=== PATIENT | male | born 1970 | race Caucasian/White ===

== ENCOUNTER → 2018-02-17 | Outpatient (CLI) | payer OTHER ==
[~2018-02-17] MED LIST: CATHETER FLUSH 10 ML SYR IV PRN
[2018-02-17 08:37] VITALS: BP 115/78
--- NOTE | 2018-02-17 14:53 | STRESS TEST ---
DATE OF SERVICE: 02/17/2018 EXERCISE STRESS TEST REPORT Baseline heart rate is 94. In summary, the patient was injected with 10.8 mCi of technetium-99 Myoview and the resting images were obtained. Then, the patient started exercising with a baseline heart rate, blood pressure and EKG mentioned above. The patient was able to exercise for 10 minutes on Giovany protocol, achieving maximum heart rate of 143. With peak stress level, the patient was injected with 31.2 mCi of technetium-99 Myoview. The resting and stress images were reviewed and compared in the short axis, horizontal long axis, and vertical long axis views. Review of the images showed diaphragmatic attenuation with typical male pattern, mild decreased uptake at the inferoapical segment with no significant ischemia noted. SSS is 1, SDS 1, and TID value 0.84. On the gated images, the left ventricle appeared to be normal size with normal contractility. Calculated ejection fraction is 55%. CONCLUSION: 1. Good exercise tolerance, a total of 10 minutes on Giovany protocol, achieving 83% of maximum expected heart rate. 2. Appropriate heart rate and blood pressure response to exercise returned to baseline during recovery. 3. Minimal nondiagnostic EKG changes with exercise returned to baseline during recovery. 4. No ischemia or infarction on SPECT images with typical male pattern. 5. Normal left ventricular size with normal contractility. Calculated ejection fraction is 55%. Job ID: [id number] DocumentID: [id number] Dictated Date: 02/17/2018 14:00:25 Revival Clerk Date: 02/17/2018 14:53:17 Dictated By: ALEXANDREA CAPONE MD
== END ==
LOC: CARD 06:51
PROVIDERS: ATTEND Internal Medicine Cardiovascular Disease
DX: I10 Essential (primary) hypertension (principal); R07.9 Chest pain, unspecified; R42 Dizziness and giddiness; I63.9 Cerebral infarction, unspecified; E66.9 Obesity, unspecified
CPT/HCPCS: 78452; 93017

== ENCOUNTER → 2018-02-18 | Outpatient (CLI) | payer OTHER | LOC: CARD 09:58 | PROVIDERS: ATTEND Internal Medicine Cardiovascular Disease | DX: I10 Essential (primary) hypertension (principal); R42 Dizziness and giddiness; R07.9 Chest pain, unspecified; I63.9 Cerebral infarction, unspecified; E66.9 Obesity, unspecified; I34.0 Nonrheumatic mitral (valve) insufficiency | CPT/HCPCS: 93306 ==

== ENCOUNTER → 2018-11-04 | Outpatient (CLI) | payer OTHER ==
--- NOTE | 2018-11-04 14:44 | Diagnostic Imaging Report ---
PROCEDURE: CT chest without contrast. TECHNIQUE: Multiple contiguous axial images were obtained through the chest without the use of intravenous contrast. Auto Exposure Controls were utilized during the CT exam to meet ALARA standards for radiation dose reduction. INDICATION: Weakness. Tremor. COMPARISON: None. FINDINGS: Evaluation of the lung haro demonstrate small 4 mm micronodule cyst seen with the superior margins of the major fissure on the left. There is also small subpleural micronodule within the anterior and lateral margins of the left upper lobe (images 64 and 68, series 4). There is no focal consolidation, large effusion, nor pneumothorax. Cardiomediastinal structures show normal heart size. There is no large pericardial effusion. There is mild wispy increased density within the anterior superior mediastinum. No suspicious mediastinal, hilar, nor axillary adenopathy is seen on either side. Hypodense nodule of the right thyroid lobe measures 2.7 x 2.5 cm. Osseous structures show no acute abnormalities. Included portions of the upper abdomen show hypodense appearance to the liver. IMPRESSION: 1. Minimal wispy soft tissue density within the anterosuperior mediastinum, which could be on the basis of residual thymic tissue. 2. Small left-sided micronodules. If patient is in a high-risk category, such as history of smoking, one-year followup could be performed to ensure stability. 3. Right-sided thyroid nodule. Correlation with dedicated thyroid sonogram is recommended when clinically appropriate. 4. Hepatic steatosis. Dictated by: Dictated on workstation # [id number]
== END ==
LOC: RAD 12:13
PROVIDERS: ATTEND Psychiatry & Neurology Neuromuscular Medicine
DX: E04.1 Nontoxic single thyroid nodule (principal); R91.8 Other nonspecific abnormal finding of lung field; K76.0 Fatty (change of) liver, not elsewhere classified; R53.1 Weakness; R25.1 Tremor, unspecified
CPT/HCPCS: 71250

== ENCOUNTER → 2018-11-29 | Outpatient (CLI) | payer OTHER ==
--- NOTE | 2018-11-29 12:50 | Diagnostic Imaging Report ---
PROCEDURE: MR imaging cervical spine without contrast. TECHNIQUE: Multiplanar, multisequence MR imaging of the cervical spine was performed without contrast. INDICATION: Weakness, tremors and neuropathy. COMPARISON: No prior studies are available for comparison. FINDINGS: Curvature and alignment of the cervical spine is normal. The vertebral body marrow signal is normal. No geographic marrow lesion is seen. There is mild generalized disc desiccation but disc heights are fairly well-maintained. Cervical cord demonstrates normal homogeneous signal intensity and normal morphology. Craniocervical junction is unremarkable. C2-C3: No central canal or neural foraminal stenosis is identified. C3-C4: No central canal or neural foraminal stenosis is identified. C4-C5: No central canal or neural foraminal stenosis is identified. C5-C6: No central canal or neural foraminal stenosis is detected. C6-C7: No central canal or neural foraminal stenosis is detected. C7-T1: No central canal or neural foraminal stenosis is identified. Paraspinous tissues demonstrates a 2.5 cm hyperintense mass involving the right lobe of the thyroid gland. No other significant abnormalities seen. IMPRESSION: 1. Essentially unremarkable MRI of the cervical spine. No focal disc protrusion, central canal or neural foraminal stenosis is identified. 2. Right thyroid mass. Dedicated thyroid ultrasound would be recommended for further evaluation. Dictated by: Dictated on workstation # [id number]
== END ==
LOC: RAD 11:36
PROVIDERS: ATTEND Psychiatry & Neurology Neuromuscular Medicine
DX: G62.9 Polyneuropathy, unspecified (principal); E07.89 Other specified disorders of thyroid; R25.1 Tremor, unspecified; R53.1 Weakness
CPT/HCPCS: 72141

== ENCOUNTER → 2018-12-17 | Outpatient (CLI) | payer OTHER ==
--- NOTE | 2018-12-17 09:30 | Diagnostic Imaging Report ---
PROCEDURE: US Thyroid. TECHNIQUE: Multiple real-time grayscale images were obtained of the thyroid in various projections. INDICATION: Right-sided thyroid nodule. COMPARISON: No prior thyroid ultrasounds are available for comparison. FINDINGS: Right lobe of the thyroid measures 5.5 x 2.3 x 2.4 cm and the left lobe measures 4.6 x 1.6 x 1.5 cm. Left lobe shows homogeneous echotexture. There is a dominant solid mass involving the mid to lower aspect of the right lobe of thyroid measuring 3.7 x 2.3 x 2.2 cm. No microcalcifications are seen. Subcentimeter nodule in the lower pole right lobe is also noted. IMPRESSION: Dominant solid right lobe thyroid mass. Fine-needle aspiration would be recommended for further evaluation. Dictated by: Dictated on workstation # [id number]
== END ==
LOC: RAD 07:27
PROVIDERS: ATTEND Family Medicine
DX: E04.1 Nontoxic single thyroid nodule (principal)
CPT/HCPCS: 76536

== ENCOUNTER → 2018-12-24 | Outpatient (CLI) | payer OTHER ==
[~2018-12-24] VITALS: Ht 177.8 cm; Wt 115.9 kg
[~2018-12-24] MED LIST changes: -CATHETER FLUSH 10 ML SYR IV PRN; +LIDOCAINE 1% INJ 20 ML 20 ML VIAL INJ ONE; +LIDOCAINE 1% INJ 20 ML 20 ML VIAL ONE
--- NOTE | 2018-12-24 11:58 | Diagnostic Imaging Report ---
INDICATION: Right thyroid nodule. Patient presents for ultrasound-guided fine-needle aspiration. Patient brought to the procedure room and placed on table in the supine position. Ultrasound of the right neck was performed to evaluate appropriate entry site. The right neck was then prepped and draped in usual sterile fashion. A small amount of 1% lidocaine was utilized for local anesthesia. A total of 4 passes were made into the solid nodule in right lobe of the thyroid utilizing 25-gauge needles. Fine-needle aspiration technique was utilized. Needle was withdrawn and hemostasis was obtained using manual compression. Patient tolerated procedure well and left department in stable condition. IMPRESSION: Successful ultrasound-guided fine-needle aspiration of the dominant solid nodule right lobe of the thyroid. Pathology results are currently pending. Dictated by: Dictated on workstation # [id number]
== END ==
LOC: RAD 09:34
PROVIDERS: ATTEND Family Medicine
DX: E04.1 Nontoxic single thyroid nodule (principal)
CPT/HCPCS: 88173; 88305

== ENCOUNTER 2019-09-05 18:45 | Inpatient (IN) | payer OTHER ==
[~2019-09-05] VITALS: Ht 180.3 cm; Wt 122.6 kg
[2019-09-05] MEDS ORDERED: NS IV 1000 ML 1,000 ML IV SCH (18:55)
[2019-09-05 19:22] LABS: BASOPHILS % (AUTO) 0 % (0-10); EOSINOPHILS # (AUTO) 0.1 10^3/uL (0.0-0.3); EOSINOPHILS % (AUTO) 1 % (0-10); HEMATOCRIT 44 % (40-54); HEMOGLOBIN 15.7 G/DL (13.3-17.7); LYMPHOCYTES # (AUTO) 1.8 X 10^3 (1.0-4.0); LYMPHOCYTES % (AUTO) 18 % (12-44); MEAN CORPUSCULAR HEMOGLOBIN 31 PG (25-34); MEAN CORPUSCULAR HGB CONC 36 G/DL (32-36); MEAN CORPUSCULAR VOLUME 86 FL (80-99); MEAN PLATELET VOLUME 8.9 FL (7.4-10.4); MONOCYTES # (AUTO) 0.8 X 10^3 (0.0-1.0); MONOCYTES % (AUTO) 8 % (0-12); NEUTROPHILS # (AUTO) 7.3 X 10^3 (1.8-7.8); NEUTROPHILS % (AUTO) 73 % (42-75); PLATELET COUNT 219 10^3/uL (130-400)
[2019-09-05 19:32] LABS: ALBUMIN 4.5 GM/DL (3.2-4.5); CHLORIDE 100 MMOL/L (98-107); POTASSIUM 3.9 MMOL/L (3.6-5.0); SODIUM 135 MMOL/L (135-145)
[2019-09-05 19:33] LABS: AMYLASE 82 U/L (25-125); CALCIUM 9.6 MG/DL (8.5-10.1)
[2019-09-05 19:34] LABS: GLUCOSE 101 MG/DL (70-105); TOTAL PROTEIN 7.6 GM/DL (6.4-8.2)
[2019-09-05 19:35] LABS: CARBON DIOXIDE 21 MMOL/L (21-32)
[2019-09-05 19:36] LABS: BILIRUBIN,TOTAL 1.3 MG/DL (0.1-1.0)
[2019-09-05 19:37] LABS: ALKALINE PHOSPHATASE 106 U/L (40-136)
[2019-09-05 19:38] LABS: CREATININE SERUM 1.17 MG/DL (0.60-1.30); GFR ESTIMATED > 60
[2019-09-05 19:39] LABS: BUN/CREATININE RATIO 13
[2019-09-05 19:40] LABS: FIBRIN DEGRADATION PRODUCTS 19.37 UG/ML (0.00-0.49); MAGNESIUM 1.6 MG/DL (1.6-2.4); PROTHROMBIN TIME PATIENT 13.2 SEC (12.2-14.7)
[2019-09-05 19:41] LABS: ALANINE AMINOTRANSFERASE 31 U/L (0-55); LIPASE 64 U/L (8-78)
[2019-09-05 19:42] LABS: CREATINE KINASE 105 U/L (30-200)
[2019-09-05 19:49] LABS: CREATINE KINASE MB 0.9 NG/ML (<6.6)
[2019-09-05] MEDS ORDERED: DOXY100T2 (19:58)
[2019-09-05] MEDS ORDERED: TACR0.5C6 PO (19:58)
[2019-09-05] MEDS ORDERED: PRED5TAB PO (19:58)
[2019-09-05] MEDS ORDERED: TACR1CAP8 PO (19:58)
[2019-09-05] MEDS ORDERED: PYRI60TA PO (19:58)
--- NOTE | 2019-09-05 20:02 | Diagnostic Imaging Report ---
INDICATION: Fever and weakness. EXAM: No prior examinations are available for comparison. FINDINGS: The heart size, mediastinal configuration, and pulmonary vascularity are within normal limits. There is no pleural effusion, pneumothorax, or pneumonia. The osseous structures are unremarkable. IMPRESSION: No acute cardiopulmonary abnormality. Dictated by: Dictated on workstation # [id number]
--- NOTE | 2019-09-05 20:15 | ED General ---
General Chief Complaint: Lower Extremity Stated Complaint: FEVER/SOA/POSS BLOOD CLOT Nursing Triage Note: pt presents to ed referred by [facility] urgent care for r calf pain over a week with fever starting last night. pt alsp reports DUMAS starting 2 days ago. Nursing Sepsis Screen: No Definite Risk Source of Information: Patient Exam Limitations: No Limitations History of Present Illness Date Seen by Provider: Sep 05, 2019 Time Seen by Provider: 18:55 Initial Comments PT ARRIVES VIA POV FROM [facility] PT C/O RIGHT LOWER LEG PAIN AND SWELLING FOR OVER A WEEK, CALF TENDERNESS HURTS TO WALK OR EXTEND HIS LEG--FEELS BETTER IF KNEE IS FLEXED NO INJURY, NO REDNESS OR SORES, ETC. 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 PT LIVES ALONE PT NORMALLY WORKS AT [employer], BUT HAS NOT WORKED SINCE 05/24/19 DUE TO COVID-19 PANDEMIC. PCP: DR. OAKLEY--HAS NOT SEEN IN AWHILE Allergies and Home Medications Allergies Coded Allergies: No Allergy Information Available (Unverified , 02/17/18) Patient Home Medication List Home Medication List Reviewed: Yes Review of Systems Review of Systems Constitutional: see HPI, chills, diaphoresis, dizziness, malaise EENTM: no symptoms reported; No nose congestion, No throat pain Respiratory: see HPI, cough; No orthopnea, No short of breath, No wheezing Cardiovascular: No chest pain; edema; No palpitations, No syncope Gastrointestinal: see HPI; No abdominal pain, No constipation; diarrhea (CHR ONIC DIARRHEA--UNCHANGED); No loss of appetite, No nausea, No vomiting Genitourinary: no symptoms reported Musculoskeletal: see HPI Skin: no symptoms reported; No rash Psychiatric/Neurological: No Symptoms Reported; Denies Numbness, Denies Paresthesia, Denies Seizure, Denies Tingling, Denies Tremors, Denies Weakness Immunological/Allergic: see HPI Past Lpkxanj-Kscgad-Ixgcvb Hx Past Med/Social Hx: Reviewed and Corrections made Patient Social History Alcohol Use: Past History (NONE FOR 20 YEARS) Recreational Drug Use: No Smoking Status: Former Smoker (QUIT 20 YEARS AGO) Recent Foreign Travel: No Contact w/Someone Who Travel: No Recent Infectious Disease Expo: No Past Medical History Surgeries: Yes (L ELBOW;R ROTATOR CUFF X2;BILAT KNEE SCOPES;R ANIKLE FX/ORIF;THYMUS REMOVED) Orthopedic Respiratory: Yes (PNEUMONIA SEVERAL TIMES) Pneumonia Cardiac: Yes Hypertension Neurological: Yes (MYASTHENIA GRAVIS) Genitourinary: No Gastrointestinal: Yes Chronic Diarrhea Musculoskeletal: Yes (MULTIPLE ORTHO SURGERIES) Fractures Endocrine: No HEENT: No Cancer: No Psychosocial: No Integumentary: No Blood Disorders: No Adverse Reaction/Blood Tranf: No Physical Exam Vital Signs Vital Signs - First Documented 09/05/19 09/05/19 09/06/19 18:45 23:00 00:19 Temp 37.4 Pulse 103 Resp 20 B/P (MAP) 148/102 (117) Pulse Ox 97 O2 Delivery Room Air FiO2 21 Capillary Refill : Less Than 3 Seconds Height, Weight, BMI Height: '" Weight: lbs. oz. kg; 37.00 BMI Method: General Appearance: No Apparent Distress, WD/WN, Other (DOES NOT APPEAR ILL OR TO BE IN ANY DISCOMFORT OR DISTRESS) HEENT: PERRL/EOMI Neck: Full Range of Motion, Normal Inspection, Non Tender, Supple Respiratory: Normal Breath Sounds, No Accessory Muscle Use, No Respiratory Distress Cardiovascular: Regular Rate, Rhythm, No JVD, No Murmur, Normal Peripheral Pulses Gastrointestinal: Non Tender, Soft Back: No CVA Tenderness Extremity: Normal Capillary Refill, Normal Range of Motion, Calf Tenderness (RIGHT), Other (SWELLING AND FIRMNESS AND TENDERNESS TO RIGHT CALF. NO DISCOLORATION. NO SWELLING AT FOOT OR ANKLE OR ANTERIOR TIBIA. NO CORDING. 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 Norm as Tested Skin: Normal Color, Warm/Dry; No Rash Focused Exam Lactate Level 09/05/19 19:00: Lactic Acid Level 1.33 Lactic Acid Level Progress/Results/Core Measures Suspected Sepsis Recent Fever Within 48 Hours: No Infection Criteria Present: None New/Unexplained Altered Menta: No Sepsis Screen: No Definite Risk SIRS Temperature: Pulse: 103 Respiratory Rate: 20 Laboratory Tests 09/05/19 19:00: White Blood Count 10.0 Blood Pressure 148 /102 Mean: 117 09/05/19 19:00: Lactic Acid Level 1.33 Laboratory Tests 09/05/19 19:00: Creatinine 1.17, INR Comment 1.0, Platelet Count 219, Total Bilirubin 1.3H Results/Orders Lab Results Laboratory Tests Test 09/05/19 19:00 09/05/19 21:33 09/05/19 22:11 Range/Units White Blood Count 10.0 4.3-11.0 10^3/uL Red Blood Count 5.13 4.35-5.85 10^6/uL Hemoglobin 15.7 13.3-17.7 G/DL Hematocrit 44 40-54 % Mean Corpuscular Volume 86 80-99 FL Mean Corpuscular Hemoglobin 31 25-34 PG Mean Corpuscular Hemoglobin Concent 36 32-36 G/DL Red Cell Distribution Width 13.0 10.0-14.5 % Platelet Count 219 130-400 10^3/uL Mean Platelet Volume 8.9 7.4-10.4 FL Neutrophils (%) (Auto) 73 42-75 % Lymphocytes (%) (Auto) 18 12-44 % Monocytes (%) (Auto) 8 0-12 % Eosinophils (%) (Auto) 1 0-10 % Basophils (%) (Auto) 0 0-10 % Neutrophils # (Auto) 7.3 1.8-7.8 X 10^3 Lymphocytes # (Auto) 1.8 1.0-4.0 X 10^3 Monocytes # (Auto) 0.8 0.0-1.0 X 10^3 Eosinophils # (Auto) 0.1 0.0-0.3 10^3/uL Basophils # (Auto) 0.0 0.0-0.1 10^3/uL Erythrocyte Sedimentation Rate 8 0-30 MM/HR Prothrombin Time 13.2 12.2-14.7 SEC INR Comment 1.0 0.8-1.4 Activated Partial Thromboplast Time 28 24-35 SEC D-Dimer 19.37 H 0.00-0.49 UG/ML Sodium Level 135 135-145 MMOL/L Potassium Level 3.9 3.6-5.0 MMOL/L Chloride Level 100 98-107 MMOL/L Carbon Dioxide Level 21 21-32 MMOL/L Anion Gap 14 5-14 MMOL/L Blood Urea Nitrogen 15 7-18 MG/DL Creatinine 1.17 0.60-1.30 MG/DL Estimat Glomerular Filtration Rate > 60 BUN/Creatinine Ratio 13 Glucose Level 101 70-105 MG/DL Lactic Acid Level 1.33 0.50-2.00 MMOL/L Calcium Level 9.6 8.5-10.1 MG/DL Corrected Calcium 9.2 8.5-10.1 MG/DL Magnesium Level 1.6 1.6-2.4 MG/DL Total Bilirubin 1.3 H 0.1-1.0 MG/DL Aspartate Amino Transf (AST/SGOT) 22 5-34 U/L Alanine Aminotransferase (ALT/SGPT) 31 0-55 U/L Alkaline Phosphatase 106 40-136 U/L Lactate Dehydrogenase 238 H 125-220 U/L Total Creatine Kinase 105 30-200 U/L Creatine Kinase MB 0.9 <6.6 NG/ML Myoglobin 56.7 10.0-92.0 NG/ML Troponin I < 0.028 <0.028 NG/ML C-Reactive Protein High Sensitivity 2.30 H 0.00-0.50 MG/DL B-Type Natriuretic Peptide < 10.0 <100.0 PG/ML Total Protein 7.6 6.4-8.2 GM/DL Albumin 4.5 3.2-4.5 GM/DL Amylase Level 82 25-125 U/L Lipase 64 8-78 U/L Procalcitonin 0.05 <0.10 NG/ML Urine Color YELLOW Urine Clarity CLEAR Urine pH 6.5 5-9 Urine Specific [place] <=1.005 1.016-1.022 Urine Protein NEGATIVE NEGATIVE Urine Glucose (UA) NEGATIVE NEGATIVE Urine Ketones TRACE H NEGATIVE Urine Nitrite NEGATIVE NEGATIVE Urine Bilirubin NEGATIVE NEGATIVE Urine Urobilinogen 0.2 < = 1.0 MG/DL Urine Leukocyte Esterase NEGATIVE NEGATIVE Urine RBC (Auto) TRACE-L NEGATIVE Urine RBC RARE /HPF Urine WBC NONE /HPF Urine Squamous Epithelial Cells RARE /HPF Urine Crystals NONE /LPF Urine Bacteria NEGATIVE /HPF Urine Casts NONE /LPF Urine Mucus NEGATIVE /LPF Urine Culture Indicated NO My Orders Orders - JOSE MARTIN LOPEZ DO Ed Iv/Invasive Line Start (09/05/19 18:55) Ekg Tracing (09/05/19 18:55) Monitor-Rhythm Ecg Trace Only (09/05/19 18:55) Chest 1 View, Ap/Pa Only (09/05/19 18:55) Amylase (09/05/19 18:55) BNP (09/05/19 18:55) Cbc With Automated Diff (09/05/19 18:55) Comprehensive Metabolic Panel (09/05/19 18:55) Creatine Kinase (09/05/19 18:55) Creatine Kinase Mb (09/05/19 18:55) Hs C Reactive Protein (09/05/19 18:55) Erythrocyte Sedimentation Rate (09/05/19 18:55) Fibrin Degradation Products (09/05/19 18:55) Lactic Acid Analyzer (09/05/19 18:55) Lipase (09/05/19 18:55) Magnesium (09/05/19 18:55) Procalcitonin (Pct) (09/05/19 18:55) Protime With Inr (09/05/19 18:55) Partial Thromboplastin Time (09/05/19 18:55) Ua Culture If Indicated (09/05/19 18:55) Blood Culture (09/05/19 18:55) Myoglobin Serum (09/05/19 18:55) Troponin I (09/05/19 18:55) Ed Iv/Invasive Line Start (09/05/19 18:55) Ns Iv 1000 Ml (Sodium Chloride 0.9%) (09/05/19 18:55) LDH (09/05/19 18:55) Coronavirus Sars-Cov-2 So 2018 (09/05/19 18:55) Ct Angio Chest/Abd W (09/05/19 20:25) Vancomycin Injection (Vancomycin Injecti (09/05/19 21:45) Methylprednisolone Sod Succ (Solu-Medrol (09/05/19 22:00) Vital Signs/I&O 09/05/19 09/05/19 09/05/19 09/05/19 18:45 22:46 23:00 23:06 Temp 37.4 37.0 Pulse 103 80 84 91 Resp 20 20 18 B/P (MAP) 148/102 (117) 124/71 175/124 (141) Pulse Ox 97 95 94 O2 Delivery Room Air 09/05/19 09/05/19 09/05/19 09/05/19 23:15 23:30 23:36 23:45 Pulse 82 88 84 Resp 18 18 18 B/P (MAP) 138/91 (107) 136/89 (105) 129/86 (100) Pulse Ox 97 99 95 O2 Delivery Room Air Room Air 09/05/19 09/06/19 09/06/19 09/06/19 23:57 00:00 00:19 01:00 Pulse 82 103 85 Resp 18 B/P (MAP) 130/86 (101) Pulse Ox 96 97 O2 Delivery Room Air FiO2 21 09/06/19 09/06/19 03:43 03:47 Temp 36.7 Pulse 75 Resp 18 B/P (MAP) 105/69 (81) Pulse Ox 93 O2 Delivery Room Air 09/06/19 00:00 Intake Total 1000 ml Balance 1000 ml Capillary Refill : Less Than 3 Seconds Blood Pressure Mean: 117 Progress Note : Progress Note PT SEEN IN COVID UNIT, PPE WORN AT ALL TIMES COVID-19 TESTING PERFORMED NO ULTRASOUND AVAILABLE HERE AT THIS TIME. VITALS STABLE NO COUGH OR DYSPNEA OR CHEST PAIN NO HYPOXIA PT DECLINES PAIN MEDICATIONS DURING ER STAY ECG Initial ECG Impression Date: Sep 05, 2019 Initial ECG Impression Time: 18:59 Initial ECG Rate: 92 Initial ECG Rhythm: Normal Sinus Initial ECG Impression: Normal Diagnostic Imaging Comments CXR--NO ACUTE PROCESS, PER RADIOLOGIST REPORT AT 2019 CT ANGIOGRAM CHEST/ABDOMEN--PER RADIOLOGIST REPORT [id number] FINDINGS: There is some pulmonary embolism in the right upper lobe pulmonary artery. There is minimal pulmonary embolism in the right lower lobe subsegmental branch. There are no discrete pulmonary nodules, masses or infiltrates. There is no pleural or pericardial fluid. There is no pneumothorax. There is no pathologically enlarged adenopathy in the chest. Thoracic aorta is normal in caliber and without evidence of dissection. The visualized intra-abdominal structures are unremarkable. IMPRESSION: 1. Examination is positive for pulmonary embolism to the right upper lobe and right lower lobe, as described. Reviewed: Reviewed by [facility] Departure Communication (Admissions) 2129--SPOKE WITH DR. OAKLEY, ACCEPTS PT FOR ADMIT. WILL CONSULT DR. WEAVER 2137--SPOKE WITH DR. WEAVER, TAX CREDIT LEASING CONSULTANT, ORDERS NOTED. Impression Primary Impression: Pulmonary emboli Additional Impressions: COVID P.U.I. Myasthenia gravis IMMUNOSPPRESSIVE MEDICATIONS SUSPECTED DVT RIGHT LEG Disposition: ADMITTED INPATIENT Condition: Stable Admissions Decision to Admit Reason: Admit from ER (General) Decision to Admit/Date: Sep 05, 2019 Time/Decision to Admit Time: 21:30 Departure-Patient Inst. Referrals: JESENIA OAKLEY MD (PCP/Family) Primary Care Physician JOSE MARTIN LOPEZ DO Sep 05, 2019 20:15
[2019-09-05 20:17] LABS: ERYTHROCYTE SEDIMENTATION RATE 8 MM/HR (0-30)
--- OUTSIDE RECORDS SUMMARY | 2019-09-05 20:54 | XMS REPORT | Continuity of Care Document ---
Author Organization Unknown Address Unknown Phone Unavailable Allergies Active Description Code Type Severity Reaction Onset Reported/Identified Relationship to Patient Clinical Status Yes No Allergy Information Available [id number] Drug Allergy Unknown N/A 018 Medications There is no data. Problems Date Dx Coded Attending Type Code Diagnosis Diagnosed By 02/18/2018 ALEXANDREA CAOPNE MD Ot E66. 9 OBESITY, UNSPECIFIED 02/18/2018 ALEXANDREA CAPONE MD Ot I10 ESSENTIAL (PRIMARY) HYPERTENSION 02/18/2018 ALEXANDREA CAPONE MD Ot I63. 9 CEREBRAL INFARCTION, UNSPECIFIED 02/18/2018 ALEXANDREA CAPONE MD Ot R07. 9 CHEST PAIN, UNSPECIFIED 02/18/2018 ALEXANDREA CAPONE MD Ot R42 DIZZINESS AND GIDDINESS 02/22/2018 ALEXANDREA CAPONE MD Ot E66. 9 OBESITY, UNSPECIFIED 02/22/2018 ALEXANDREA CAPONE MD Ot I10 ESSENTIAL (PRIMARY) HYPERTENSION 02/22/2018 ALEXANDREA CAPONE MD Ot I34. 0 NONRHEUMATIC MITRAL (VALVE) INSUFFICIENC 02/22/2018 ALEXANDREA CAPONE MD Ot I63. 9 CEREBRAL INFARCTION, UNSPECIFIED 02/22/2018 ALEXANDREA CAPONE MD Ot R07. 9 CHEST PAIN, UNSPECIFIED 02/22/2018 ALEXANDREA CAPONE MD Ot R42 DIZZINESS AND GIDDINESS 03/02/2018 ALEXANDREA CAPONE MD Ot E66. 9 OBESITY, UNSPECIFIED 03/02/2018 ALEXANDREA CAPONE MD Ot I10 ESSENTIAL (PRIMARY) HYPERTENSION 03/02/2018 ALEXANDREA CAPONE MD Ot I34. 0 NONRHEUMATIC MITRAL (VALVE) INSUFFICIENC 03/02/2018 ALEXANDREA CAPONE MD Ot I63. 9 CEREBRAL INFARCTION, UNSPECIFIED 03/02/2018 ALEXANDREA CAPONE MD Ot R07. 9 CHEST PAIN, UNSPECIFIED 03/02/2018 ALEXANDREA CAPONE MD Ot R42 DIZZINESS AND GIDDINESS 03/10/2018 ALEXANDREA CAPONE MD Ot E66. 9 OBESITY, UNSPECIFIED 03/10/2018 ALEXANDREA CAPONE MD Ot I10 ESSENTIAL (PRIMARY) HYPERTENSION 03/10/2018 ALEXANDREA CAPONE MD Ot I63. 9 CEREBRAL INFARCTION, UNSPECIFIED 03/10/2018 ALEXANDREA CAPONE MD Ot R07. 9 CHEST PAIN, UNSPECIFIED 03/10/2018 ALEXANDREA CAPONE MD Ot R42 DIZZINESS AND GIDDINESS 03/17/2018 ALEXANDREA CAPONE MD Ot E66. 9 OBESITY, UNSPECIFIED 03/17/2018 ALEXANDREA CAPONE MD Ot I10 ESSENTIAL (PRIMARY) HYPERTENSION 03/17/2018 ALEXANDREA CAPONE MD Ot I63. 9 CEREBRAL INFARCTION, UNSPECIFIED 03/17/2018 ALEXANDREA CAPONE MD Ot R07. 9 CHEST PAIN, UNSPECIFIED 03/17/2018 ALEXANDREA CAPONE MD Ot R42 DIZZINESS AND GIDDINESS 03/19/2018 ALEXANDREA CAPONE MD Ot E66. 9 OBESITY, UNSPECIFIED 03/19/2018 ALEXANDREA CAPONE MD Ot I10 ESSENTIAL (PRIMARY) HYPERTENSION 03/19/2018 ALEXANDREA CAPONE MD Ot R06. 83 SNORING 03/19/2018 ALEXANDREA CAPONE MD Ot R07. 9 CHEST PAIN, UNSPECIFIED 03/19/2018 ALEXANDREA CAPONE MD Ot Z68. 34 BODY MASS INDEX (BMI) 34.0-34.9, ADULT 03/19/2018 ALEXANDREA CAPONE MD Ot Z82. 49 FAMILY HX OF ISCHEM HEART DIS AND OTH DI 03/22/2018 ALEXANDREA CAPONE MD Ot E66. 9 OBESITY, UNSPECIFIED 03/22/2018 ALEXANDREA CAPONE MD Ot I10 ESSENTIAL (PRIMARY) HYPERTENSION 03/22/2018 ALEXANDREA CAPONE MD Ot R06. 83 SNORING 03/22/2018 ALEXANDREA CAPONE MD Ot R07. 9 CHEST PAIN, UNSPECIFIED 03/22/2018 ALEXANDREA CAPONE MD Ot Z68. 34 BODY MASS INDEX (BMI) 34.0-34.9, ADULT 03/22/2018 ALEXANDREA CAPONE MD Ot Z82. 49 FAMILY HX OF ISCHEM HEART DIS AND OTH DI 04/06/2018 ALEXANDREA CAPONE MD Ot E66. 9 OBESITY, UNSPECIFIED 04/06/2018 ALEXANDREA CAPONE MD Ot I10 ESSENTIAL (PRIMARY) HYPERTENSION 04/06/2018 ALEXANDREA CAPONE MD Ot I34. 0 NONRHEUMATIC MITRAL (VALVE) INSUFFICIENC 04/06/2018 ALEXANDREA CAPONE MD Ot I63. 9 CEREBRAL INFARCTION, UNSPECIFIED 04/06/2018 ALEXANDREA CAPONE MD Ot R07. 9 CHEST PAIN, UNSPECIFIED 04/06/2018 ALEXANDREA CAPONE MD Ot R42 DIZZINESS AND GIDDINESS 04/06/2018 ALEXANDREA CAPONE MD Ot E66. 9 OBESITY, UNSPECIFIED 04/06/2018 ALEXANDREA CAPONE MD Ot I10 ESSENTIAL (PRIMARY) HYPERTENSION 04/06/2018 ALEXANDREA CAPONE MD Ot I63. 9 CEREBRAL INFARCTION, UNSPECIFIED 04/06/2018 ALEXANDREA CAPONE MD Ot R07. 9 CHEST PAIN, UNSPECIFIED 04/06/2018 ALEXANDREA CAPONE MD Ot R42 DIZZINESS AND GIDDINESS 04/06/2018 ALEXANDREA CAPONE MD Ot E66. 9 OBESITY, UNSPECIFIED 04/06/2018 ALEXANDREA CAPONE MD Ot I10 ESSENTIAL (PRIMARY) HYPERTENSION 04/06/2018 ALEXANDREA CAOPNE MD Ot I63. 9 CEREBRAL INFARCTION, UNSPECIFIED 04/06/2018 ALEXANDREA CAPONE MD Ot R07. 9 CHEST PAIN, UNSPECIFIED 04/06/2018 ALEXANDREA CAPONE MD Ot R42 DIZZINESS AND GIDDINESS 04/12/2018 ALEXANDREA CAPONE MD Ot E66. 9 OBESITY, UNSPECIFIED 04/12/2018 ALEXANDREA CAPONE MD Ot I10 ESSENTIAL (PRIMARY) HYPERTENSION 04/12/2018 ALEXANDREA CAPONE MD Ot I34. 0 NONRHEUMATIC MITRAL (VALVE) INSUFFICIENC 04/12/2018 ALEXANDREA CAPONE MD Ot I63. 9 CEREBRAL INFARCTION, UNSPECIFIED 04/12/2018 ALEXANDREA CAPONE MD Ot R07. 9 CHEST PAIN, UNSPECIFIED 04/12/2018 ALEXANDREA CAPONE MD Ot R42 DIZZINESS AND GIDDINESS 04/12/2018 ALEXANDREA CAPONE MD Ot E66. 9 OBESITY, UNSPECIFIED 04/12/2018 ALEXANDREA CAPONE MD Ot I10 ESSENTIAL (PRIMARY) HYPERTENSION 04/12/2018 ALEXANDREA CAPONE MD Ot I34. 0 NONRHEUMATIC MITRAL (VALVE) INSUFFICIENC 04/12/2018 ALEXANDREA CAPONE MD Ot I63. 9 CEREBRAL INFARCTION, UNSPECIFIED 04/12/2018 ALEXANDREA CAPONE MD Ot R07. 9 CHEST PAIN, UNSPECIFIED 04/12/2018 ALEXANDREA CAPONE MD Ot R42 DIZZINESS AND GIDDINESS 04/12/2018 ALEXANDREA CAPONE MD Ot E66. 9 OBESITY, UNSPECIFIED 04/12/2018 ALEXANDREA CAPONE MD Ot I10 ESSENTIAL (PRIMARY) HYPERTENSION 04/12/2018 ALEXANDREA CAPONE MD Ot I63. 9 CEREBRAL INFARCTION, UNSPECIFIED 04/12/2018 ALEXANDREA CAPONE MD Ot R07. 9 CHEST PAIN, UNSPECIFIED 04/12/2018 ALEXANDREA CAPONE MD Ot R42 DIZZINESS AND GIDDINESS 04/12/2018 ALEXANDREA CAPONE MD Ot E66. 9 OBESITY, UNSPECIFIED 04/12/2018 ALEXANDREA CAPONE MD Ot I10 ESSENTIAL (PRIMARY) HYPERTENSION 04/12/2018 ALEXANDREA CAPONE MD Ot I63. 9 CEREBRAL INFARCTION, UNSPECIFIED 04/12/2018 ALEXANDREA CAPONE MD Ot R07. 9 CHEST PAIN, UNSPECIFIED 04/12/2018 ALEXANDREA CAPONE MD Ot R42 DIZZINESS AND GIDDINESS 10/27/2018 ALEXANDREA CAPONE MD Ot E66. 9 OBESITY, UNSPECIFIED 10/27/2018 ALEXANDREA CAPONE MD Ot I10 ESSENTIAL (PRIMARY) HYPERTENSION 10/27/2018 ALEXANDREA CAPONE MD Ot I34. 0 NONRHEUMATIC MITRAL (VALVE) INSUFFICIENC 10/27/2018 ALEXANDREA CAPONE MD Ot I63. 9 CEREBRAL INFARCTION, UNSPECIFIED 10/27/2018 ALEXANDREA CAPONE MD Ot R07. 9 CHEST PAIN, UNSPECIFIED 10/27/2018 ALEXANDREA CAPONE MD Ot R42 DIZZINESS AND GIDDINESS 11/03/2018 ALEXANDREA CAPONE MD Ot E66. 9 OBESITY, UNSPECIFIED 11/03/2018 ALEXANDREA CAPONE MD Ot I10 ESSENTIAL (PRIMARY) HYPERTENSION 11/03/2018 ALEXANDREA CAPONE MD Ot I34. 0 NONRHEUMATIC MITRAL (VALVE) INSUFFICIENC 11/03/2018 ALEXANDREA CAPONE MD Ot I63. 9 CEREBRAL INFARCTION, UNSPECIFIED 11/03/2018 ALEXANDREA CAPONE MD Ot R07. 9 CHEST PAIN, UNSPECIFIED 11/03/2018 ALEXANDREA CAPONE MD Ot R42 DIZZINESS AND GIDDINESS 11/08/2018 HUGO BOX MD Ot E04.1 NONTOXIC SINGLE THYROID NODULE 11/08/2018 HUGO BOX MD Ot K76.0 FATTY (CHANGE OF) LIVER, NOT ELSEWHERE C 11/08/2018 HUGO BOX MD Ot R25.1 TREMOR, UNSPECIFIED 11/08/2018 HUGO BOX MD Ot R53.1 WEAKNESS 11/08/2018 HUGO BOX MD Ot R91.8 OTHER NONSPECIFIC ABNORMAL FINDING OF MURRAY 11/10/2018 HUGO BOX MD Ot E04.1 NONTOXIC SINGLE THYROID NODULE 11/10/2018 HUGO BOX MD Ot K76.0 FATTY (CHANGE OF) LIVER, NOT ELSEWHERE C 11/10/2018 HUGO BOX MD Ot R25.1 TREMOR, UNSPECIFIED 11/10/2018 HUGO BOX MD Ot R53.1 WEAKNESS 11/10/2018 HUGO BOX MD Ot R91.8 OTHER NONSPECIFIC ABNORMAL FINDING OF MURRAY 11/15/2018 HUGO BOX MD Ot E04.1 NONTOXIC SINGLE THYROID NODULE 11/15/2018 HUGO BOX MD Ot K76.0 FATTY (CHANGE OF) LIVER, NOT ELSEWHERE C 11/15/2018 HUGO BOX MD Ot R25.1 TREMOR, UNSPECIFIED 11/15/2018 HUGO BOX MD Ot R53.1 WEAKNESS 11/15/2018 HUGO BOX MD Ot R91.8 OTHER NONSPECIFIC ABNORMAL FINDING OF MURRAY 12/03/2018 HUGO BOX MD Ot E07.89 OTHER SPECIFIED DISORDERS OF THYROID 12/03/2018 HUGO BOX MD Ot G62.9 POLYNEUROPATHY, UNSPECIFIED 12/03/2018 HUGO BOX MD Ot R25.1 TREMOR, UNSPECIFIED 12/03/2018 HUGO BOX MD Ot R53.1 WEAKNESS 12/24/2018 HUGO BOX MD Ot E07.89 OTHER SPECIFIED DISORDERS OF THYROID 12/24/2018 HUGO BOX MD Ot G62.9 POLYNEUROPATHY, UNSPECIFIED 12/24/2018 HUGO BOX MD Ot R25.1 TREMOR, UNSPECIFIED 12/24/2018 HUGO BOX MD Ot R53.1 WEAKNESS 12/24/2018 JESENIA OAKLEY MD Ot E04. 1 NONTOXIC SINGLE THYROID NODULE 12/28/2018 JESENIA OAKLEY MD Ot E04. 1 NONTOXIC SINGLE THYROID NODULE 12/29/2018 JESENIA OAKLEY MD Ot E04. 1 NONTOXIC SINGLE THYROID NODULE 12/31/2018 HUGO BOX MD Ot E07.89 OTHER SPECIFIED DISORDERS OF THYROID 12/31/2018 HUGO BOX MD Ot G62.9 POLYNEUROPATHY, UNSPECIFIED 12/31/2018 HUGO BOX MD Ot R25.1 TREMOR, UNSPECIFIED 12/31/2018 HUGO BOX MD Ot R53.1 WEAKNESS 01/13/2019 ALEXANDREA CAPONE MD Ot E66. 9 OBESITY, UNSPECIFIED 01/13/2019 ALEXANDREA CAPONE MD Ot I10 ESSENTIAL (PRIMARY) HYPERTENSION 01/13/2019 ALEXANDREA CAPONE MD Ot I34. 0 NONRHEUMATIC MITRAL (VALVE) INSUFFICIENC 01/13/2019 ALEXANDREA CAPONE MD Ot I63. 9 CEREBRAL INFARCTION, UNSPECIFIED 01/13/2019 ALEXANDREA CAPONE MD Ot R07. 9 CHEST PAIN, UNSPECIFIED 01/13/2019 ALEXANDREA CAPONE MD Ot R42 DIZZINESS AND GIDDINESS 01/13/2019 JESENIA OAKLEY MD Ot E04. 1 NONTOXIC SINGLE THYROID NODULE 01/13/2019 JESENIA OAKLEY MD Ot E04. 1 NONTOXIC SINGLE THYROID NODULE 01/13/2019 HUGO BOX MD Ot E07.89 OTHER SPECIFIED DISORDERS OF THYROID 01/13/2019 HUGO BOX MD Ot G62.9 POLYNEUROPATHY, UNSPECIFIED 01/13/2019 HUGO BOX MD Ot R25.1 TREMOR, UNSPECIFIED 01/13/2019 HUGO BOX MD Ot R53.1 WEAKNESS 01/13/2019 HUGO BOX MD Ot E04.1 NONTOXIC SINGLE THYROID NODULE 01/13/2019 HUGO BOX MD Ot K76.0 FATTY (CHANGE OF) LIVER, NOT ELSEWHERE C 01/13/2019 HUGO BOX MD Ot R25.1 TREMOR, UNSPECIFIED 01/13/2019 HUGO BOX MD Ot R53.1 WEAKNESS 01/13/2019 HUGO BOX MD Ot R91.8 OTHER NONSPECIFIC ABNORMAL FINDING OF MURRAY 01/28/2019 JESENIA OAKLEY MD Ot E04. 1 NONTOXIC SINGLE THYROID NODULE 02/21/2019 ALEXANDREA CAPONE MD Ot E66. 9 OBESITY, UNSPECIFIED 02/21/2019 ALEXANDREA CAPONE MD Ot I10 ESSENTIAL (PRIMARY) HYPERTENSION 02/21/2019 ALEXANDREA CAPONE MD Ot I34. 0 NONRHEUMATIC MITRAL (VALVE) INSUFFICIENC 02/21/2019 ALEXANDREA CAPONE MD Ot I63. 9 CEREBRAL INFARCTION, UNSPECIFIED 02/21/2019 ALEXANDREA CAPONE MD Ot R07. 9 CHEST PAIN, UNSPECIFIED 02/21/2019 ALEXANDREA CAPONE MD Ot R42 DIZZINESS AND GIDDINESS 02/21/2019 HUGO BOX MD Ot E04.1 NONTOXIC SINGLE THYROID NODULE 02/21/2019 HUGO BOX MD Ot K76.0 FATTY (CHANGE OF) LIVER, NOT ELSEWHERE C 02/21/2019 HUGO BOX MD Ot R25.1 TREMOR, UNSPECIFIED 02/21/2019 HUGO BOX MD Ot R53.1 WEAKNESS 02/21/2019 HUGO BOX MD Ot R91.8 OTHER NONSPECIFIC ABNORMAL FINDING OF MURRAY 02/21/2019 HUGO BOX MD Ot E07.89 OTHER SPECIFIED DISORDERS OF THYROID 02/21/2019 HUGO BOX MD Ot G62.9 POLYNEUROPATHY, UNSPECIFIED 02/21/2019 HUGO BOX MD Ot R25.1 TREMOR, UNSPECIFIED 02/21/2019 HUOG BOX MD Ot R53.1 WEAKNESS 02/21/2019 JESENIA OAKLEY MD Ot E04. 1 NONTOXIC SINGLE THYROID NODULE 02/21/2019 JESENIA OAKLEY MD Ot E04. 1 NONTOXIC SINGLE THYROID NODULE 02/21/2019 HUGO BOX MD Ot E07.89 OTHER SPECIFIED DISORDERS OF THYROID 02/21/2019 HUGO BOX MD, Ot G62.9 POLYNEUROPATHY, UNSPECIFIED 02/21/2019 HUGO BOX MD Ot R25.1 TREMOR, UNSPECIFIED 02/21/2019 HUGO BOX MD Ot R53.1 WEAKNESS 02/21/2019 HUGO BOX MD Ot E04.1 NONTOXIC SINGLE THYROID NODULE 02/21/2019 HUGO BOX MD Ot K76.0 FATTY (CHANGE OF) LIVER, NOT ELSEWHERE C 02/21/2019 HUGO BOX MD Ot R25.1 TREMOR, UNSPECIFIED 02/21/2019 HUGO BOX MD Ot R53.1 WEAKNESS 02/21/2019 HUGO BOX MD Ot R91.8 OTHER NONSPECIFIC ABNORMAL FINDING OF MURRAY Procedures There is no data. Results Test Result Range Complete blood count (CBC) with automate d white blood cell (WBC) differential - 09/05/19 19:00 Blood leukocytes automated count (number/volume) 10.0 10*3/uL 4.3-11.0 Blood erythrocytes automated count (number/volume) 5.13 10*6/uL 4.35-5.85 Venous blood hemoglobin measurement (mass/volume) 15.7 g/dL 13.3-17.7 Blood hematocrit (volume fraction) 44 % 40-54 Automated erythrocyte mean corpuscular volume 86 [ foz_us] 80-99 Automated erythrocyte mean corpuscular h emoglobin (mass per erythrocyte) 31 pg 25-34 Automated erythrocyte mean corpuscular h emoglobin concentration measurement (mass/volume) 36 g/dL 32-36 Automated erythrocyte distribution width ratio 13. 0 % 10.0- 14.5 Automated blood platelet count (count/volume) 219 10*3/uL 130-400 Automated blood platelet mean volume measurement 8.9 [foz_us] 7.4-10.4 Automated blood neutrophils/100 leukocytes 73 % 42-75 Automated blood lymphocytes/100 leukocytes 18 % 12-44 Blood monocytes/100 leukocytes 8 % 0-12 Automated blood eosinophils/100 leukocytes 1 % 0-10 Automated blood basophils/100 leukocytes 0 % 0-10 Blood neutrophils automated count (number/volume) 7.3 10*3 1.8-7.8 Blood lymphocytes automated count (number/volume) 1.8 10*3 1.0-4.0 Blood monocytes automated count (number/volume) 0. 8 10*3 0.0-1.0 Automated eosinophil count 0.1 10*3/uL 0 .0-0.3 Automated blood basophil count (count/volume) 0.0 10*3/uL 0.0-0.1 Comprehensive metabolic panel - 09/05/19 19:00 Serum or plasma sodium measurement (moles/volume) 135 mmol/L 135-145 Serum or plasma potassium measurement (moles/volume) 3.9 mmol/L 3.6-5.0 Serum or plasma chloride measurement (moles/volume) 100 mmol/L 98-107 Carbon dioxide 21 mmol/L 21-32 Serum or plasma anion gap determination (moles/volume) 14 mmol/L 5-14 Serum or plasma urea nitrogen measurement (mass/volume ) 15 mg/dL 7-18 Serum or plasma creatinine measurement (mass/volume) 1.17 mg/dL 0.60-1.30 Serum or plasma urea nitrogen/creatinine mass ratio 13 NRG Serum or plasma creatinine measurement w ith calculation of estimated glomerular filtration rate > NRG Serum or plasma glucose measurement (mass/volume) 101 mg/dL 70-105 Serum or plasma calcium measurement (mass/volume) 9.6 mg/dL 8.5-10.1 Serum or plasma total bilirubin measurement (mass/volu me) 1.3 mg/dL 0.1-1.0 Serum or plasma alkaline phosphatase rachana surement (enzymatic activity/volume) 106 U/L 40-136 Serum or plasma aspartate aminotransfera se measurement (enzymatic activity/volume) 22 U/L 5-34 Serum or plasma alanine aminotransferase measurement (enzymatic activity/volume) 31 U/L 0-55 Serum or plasma protein measurement (mass/volume) 7.6 g/dL 6.4-8.2 Serum or plasma albumin measurement (mass/volume) 4.5 g/dL 3.2-4.5 CALCIUM CORRECTED 9.2 mg/dL 8.5-10.1 Magnesium - 09/05/19 19:00 Magnesium 1.6 mg/dL 1.6-2.4 Blood lactic acid measurement (moles/vol ume) - 09/05/19 19:00 Blood lactic acid measurement (moles/volume) 1.33 mmol/L 0.50-2.00 Serum ragweed IgE antibody assay - 09/04 19:00 Serum ragweed IgE antibody assay 238 U/L 125-220 PROCALCITONIN (PCT) - 09/05/19 19:00 PROCALCITONIN (PCT) 0.05 ng/mL <0.10 Serum or plasma creatine kinase measurem ent (enzymatic activity/volume) - 09/05/19 19:00 Serum or plasma creatine kinase measurem ent (enzymatic activity/volume) 105 U/L 30-200 PT panel in platelet poor plasma by coag ulation assay - 09/05/19 19:00 Prothrombin time (PT) in platelet poor plasma by coagu lation assay 13.2 s 12.2-14.7 INR in platelet poor plasma or blood by coagulation as say 1.0 0.8-1.4 Activated partial thromboplastin time (a PTT) in platelet poor plasma bycoagulation assay - 09/05/19 19:00 Activated partial thromboplastin time (a PTT) in platelet poor plasma bycoagulation assay 28 s 24-35 Fibrin D-dimer FEU measurement in platel et poor plasma (mass/volume) - 09/05/19 19:00 Fibrin D-dimer FEU measurement in platelet poor plasma (mass/volume) 19.37 ug/mL 0.00-0.49 Serum or plasma creatine kinase MB measu rement (enzymatic activity/volume) - 09/05/19 19:00 Serum or plasma creatine kinase MB measu rement (enzymatic activity/volume) 0.9 ng/mL <6.6 Serum or plasma troponin i.cardiac measu rement (mass/volume) - 09/05/19 19:00 Serum or plasma troponin i.cardiac measurement (mass/v olume) < ng/mL <0.028 Myoglobin, serum - 09/05/19 19:00 Myoglobin, serum 56.7 ng/mL 10.0-92.0 Serum or plasma amylase measurement (enz ymatic activity/volume) - 09/05/19 19:00 Serum or plasma amylase measurement (enzymatic activit y/volume) 82 U/L 25-125 Lipase - 09/05/19 19:00 Lipase 64 U/L 8-78 Serum or plasma lithium measurement (mol es/volume) - 09/05/19 19:00 BNP PT < 10.0 <100.0 Serum or plasma C reactive protein measu rement (mass/volume) - 09/05/19 19:00 Serum or plasma C reactive protein measurement (mass/v olume) 2.30 mg/dL 0.00-0.50 Erythrocyte sedimentation rate by jaja gren method - 09/05/19 19:00 Erythrocyte sedimentation rate by westergren method 8 mm 0- 30 Encounters ACCT No. Visit Date/Time Discharge Status Pt. Type Provider Facility Loc./Unit Complaint [id number] 12/24/2018 09:34:00 23:59:59 CLS Outpatient JESENIA OAKLEY MD [facility] RAD RT THYROID MASS [id number] 12/17/2018 07:27:00 23:59:59 CLS Outpatient JESENIA OAKLEY MD [facility] RAD R SIDED THYROID [id number] 11/29/2018 11:36:00 23:59:59 CLS Outpatient HUGO BOX MD [facility] RAD WEAKNESS,TREMOR [id number] 11/04/2018 12:13:00 23:59:59 CLS Outpatient HUGO BOX MD [facility] RAD WEAKNESS,TREMOR [id number] 03/18/2018 19:20:00 05:06:00 DIS Outpatient ALEXANDREA CAPONE MD [facility] SLEEP OBSTRUCTIVE SLEEP APNEA [id number] 02/18/2018 09:58:00 23:59:59 CLS Outpatient ALEXANDREA CAPONE MD [facility] CARD HTN [id number] 02/17/2018 06:51:00 23:59:59 CLS Outpatient ALEXANDREA CAPONE MD [facility] CARD HTN [id number] 09/05/2019 18:55:[address] Emergency JOSE MARTIN LOPEZ DO [facility] ER FEVER/SOA/POSS BLOOD CLOT
--- NOTE | 2019-09-05 21:30 | Diagnostic Imaging Report ---
PROCEDURE: CT angiography of the abdomen and chest with and without contrast. TECHNIQUE: After intravenous administration of contrast, thin section axial CT angiography of the abdomen and chest were obtained. 3D MIP reformats were provided. Auto Exposure Controls were utilized during the CT exam to meet ALARA standards for radiation dose reduction. INDICATION: Weakness and fever. FINDINGS: There is some pulmonary embolism in the right upper lobe pulmonary artery. There is minimal pulmonary embolism in the right lower lobe subsegmental branch. There are no discrete pulmonary nodules, masses or infiltrates. There is no pleural or pericardial fluid. There is no pneumothorax. There is no pathologically enlarged adenopathy in the chest. Thoracic aorta is normal in caliber and without evidence of dissection. The visualized intra-abdominal structures are unremarkable. IMPRESSION: 1. Examination is positive for pulmonary embolism to the right upper lobe and right lower lobe, as described. Report given to Murali Ferreira APRN, at 9:29 PM 09/05/2019/cb Dictated by: Dictated on workstation # [id number]
[2019-09-05] MEDS ORDERED: methylPREDNISolone 40 MG/ML (Solu-MEDROL) VIAL IV ONE (22:00)
[2019-09-05] MEDS: VANCOMYCIN INJECTION 1,000 MG in NS (IVPB) 250 ML IV SCH (22:14)
[2019-09-05 22:41] LABS: BILIRUBIN,URINE NEGATIVE (NEGATIVE); CLARITY,URINE CLEAR; COLOR,URINE YELLOW; GLUCOSE, URINE (UA) NEGATIVE (NEGATIVE); KETONES,URINE TRACE (NEGATIVE); LEUKOCYTE ESTERASE ,URINE NEGATIVE (NEGATIVE); NITRITE,URINE NEGATIVE (NEGATIVE); PH,URINE 6.5 (5-9); PROTEIN,URINE NEGATIVE (NEGATIVE)
--- OUTSIDE RECORDS SUMMARY | 2019-09-05 22:54 | XMS REPORT | Continuity of Care Document ---
Author Organization Unknown Address Unknown Phone Unavailable Allergies Active Description Code Type Severity Reaction Onset Reported/Identified Relationship to Patient Clinical Status Yes No Allergy Information Available [id number] Drug Allergy Unknown N/A 018 Medications There is no data. Problems Date Dx Coded Attending Type Code Diagnosis Diagnosed By 02/18/2018 ALEXANDREA CAPONE MD Ot E66. 9 OBESITY, UNSPECIFIED 02/18/2018 [...] E04. 1 NONTOXIC SINGLE THYROID NODULE 01/13/2019 HGUO BOX MD Ot E07.89 OTHER SPECIFIED DISORDERS [...] HUGO BOX MD Ot R53.1 WEAKNESS 02/21/2019 JESENIA [...] Status Pt. Type Provider Facility Loc./Unit Complaint [id number] 12/24/2018 09:34:00 23:59:59 CLS Outpatient JESENIA OAKLEY MD [facility] RAD RT THYROID MASS [id number] 12/17/2018 07:27:00 23:59:59 CLS Outpatient JESENIA OAKLEY MD [facility] RAD R SIDED THYROID [id number] 11/29/2018 11:36:00 23:59:59 CLS Outpatient HUGO BOX MD [facility] RAD WEAKNESS,TREMOR [id number] 11/04/2018 12:13:00 23:59:59 CLS Outpatient HUGO BOX MD [facility] RAD WEAKNESS,TREMOR [id number] 03/18/2018 19:20:00 05:06:00 DIS Outpatient ALEXANDREA CAPONE MD [facility] SLEEP OBSTRUCTIVE SLEEP APNEA [id number] 02/18/2018 09:58:00 23:59:59 CLS Outpatient ALEXANDREA CAPONE MD [facility] CARD HTN [id number] 02/17/2018 06:51:00 23:59:59 CLS Outpatient ALEXANDREA CAPONE MD [facility] CARD HTN [id number] 09/05/2019 21:30:[address] Inpatient ADIN ARZOLA, JESENIA Burns [facility] CSD PE,COVID PUI, MYASTHENIA GRA VIS,
[2019-09-05 22:55] LABS: BACTERIA,URINE NEGATIVE /HPF; RBC,URINE RARE /HPF; SQUAMOUS EPITHELIAL CELL,UR RARE /HPF
[2019-09-05 23:00] VITALS: BP 175/124
[2019-09-05 23:15] VITALS: BP 138/91
[2019-09-05 23:30] VITALS: BP 136/89
--- NOTE | 2019-09-05 23:43 | NUR ---
right calf measures-17.5 in left calf measures-17 in
[2019-09-05 23:45] VITALS: BP 129/86
[2019-09-05] MEDS ORDERED: ACETAMINOPHEN 500 MG TAB (TYLENOL) ONE (23:58)
[2019-09-05] MEDS ORDERED: VANCOMYCIN 1000 MG/VIAL ONE (23:59)
[2019-09-05] MEDS ORDERED: NS (IVPB) 250 ML ONE (23:59)
[2019-09-06] VITALS (8 sets, daily range): BP systolic 105–148; BP diastolic 69–92
[2019-09-06] MEDS ORDERED: ENOXAPARIN 30 MG/0.3 ML (LOVENOX) SYR ONE (00:07)
[2019-09-06] MEDS ORDERED: ENOXAPARIN 100 MG/1 ML (LOVENOX) SYR ONE (00:07)
[2019-09-06] MEDS: VANCOMYCIN INJECTION 1,000 MG in NS (IVPB) 250 ML IV SCH (00:12)
[2019-09-06] MEDS ORDERED: fentaNYL INJECTION 100 MCG/2 ML AMP IV PRN (00:15)
[2019-09-06] MEDS ORDERED: ACETAMINOPHEN 500 MG TAB (TYLENOL) PO PRN (00:15)
[2019-09-06] MEDS ORDERED: VANCOMYCIN 1 GM/NS 250 ML IVPB IV SCH ×2 (00:15)
[2019-09-06] MEDS ORDERED: PIPERACILLIN/TAZOBACTAM 4.5 GM in NS (IVPB) 100 ML IV ONE (00:15)
[2019-09-06] MEDS ORDERED: RT-ALBUTEROL INHALER HFA (VENTOLIN HFA) 18 GM IH PRN (01:00)
[2019-09-06] MEDS ORDERED: PIPERACILLIN/TAZO 4.5 GM VIAL (ZOSYN) IV ONE (03:17)
[2019-09-06] MEDS ORDERED: NS (IVPB) 100 ML ONE (03:17)
[2019-09-06 04:10] LABS: BASOPHILS % (AUTO) 0 % (0-10); EOSINOPHILS % (AUTO) 0 % (0-10); HEMATOCRIT 40 % (40-54); HEMOGLOBIN 14.4 G/DL (13.3-17.7); LYMPHOCYTES # (AUTO) 0.9 X 10^3 (1.0-4.0); LYMPHOCYTES % (AUTO) 10 % (12-44); MEAN CORPUSCULAR HEMOGLOBIN 31 PG (25-34); MEAN CORPUSCULAR HGB CONC 36 G/DL (32-36); MEAN CORPUSCULAR VOLUME 86 FL (80-99); MONOCYTES # (AUTO) 0.2 X 10^3 (0.0-1.0); MONOCYTES % (AUTO) 3 % (0-12); NEUTROPHILS # (AUTO) 7.9 X 10^3 (1.8-7.8); NEUTROPHILS % (AUTO) 87 % (42-75); PLATELET COUNT 197 10^3/uL (130-400); WHITE BLOOD COUNT 9.1 10^3/uL (4.3-11.0)
[2019-09-06] MEDS: methylPREDNISolone 40 MG/ML (Solu-MEDROL) VIAL IV SCH ×4 (04:18→22:16)
[2019-09-06 04:44] LABS: CHLORIDE 105 MMOL/L (98-107); POTASSIUM 4.3 MMOL/L (3.6-5.0); SODIUM 135 MMOL/L (135-145)
[2019-09-06 04:46] LABS: GLUCOSE 148 MG/DL (70-105)
[2019-09-06 04:47] LABS: TOTAL PROTEIN 6.7 GM/DL (6.4-8.2)
[2019-09-06 04:48] LABS: BILIRUBIN,TOTAL 1.5 MG/DL (0.1-1.0); CARBON DIOXIDE 18 MMOL/L (21-32)
[2019-09-06 04:50] LABS: ALKALINE PHOSPHATASE 79 U/L (40-136); CREATININE SERUM 1.01 MG/DL (0.60-1.30); GFR ESTIMATED > 60
[2019-09-06 04:51] LABS: BUN/CREATININE RATIO 14
[2019-09-06 04:53] LABS: ALANINE AMINOTRANSFERASE 25 U/L (0-55)
--- NOTE | 2019-09-06 06:14 | Pulmonary Consultation ---
History of Present Illness History of Present Illness Time Seen by Provider: 06:11 Date of Admission Allergies and Home Medications Allergies Coded Allergies: No Allergy Information Available (Unverified , 02/17/18) Past Lnxiaui-Xfghqe-Pvrpaj Hx Past Med/Social Hx: Reviewed and Corrections made Patient Social History Alcohol Use: Past History (NONE FOR 20 YEARS) Recreational Drug Use: No Smoking Status: Former Smoker (QUIT 20 YEARS AGO) Recent Foreign Travel: No Contact w/Someone Who Travel: No Recent Infectious Disease Expo: No Past Medical History Surgeries: Yes (L ELBOW;R ROTATOR CUFF X2;BILAT KNEE SCOPES;R ANIKLE FX/ORIF;THYMUS REMOVED) Orthopedic Respiratory: Yes (PNEUMONIA SEVERAL TIMES) Pneumonia Cardiac: Yes Hypertension Neurological: Yes (MYASTHENIA GRAVIS) Genitourinary: No Gastrointestinal: Yes Chronic Diarrhea Musculoskeletal: Yes (MULTIPLE ORTHO SURGERIES) Fractures Endocrine: No HEENT: No Cancer: No Psychosocial: No Integumentary: No Blood Disorders: No Adverse Reaction/Blood Tranf: No Family Medical History Patient reports no known family medical history. Review of Systems Time Seen by Provider: 06:11 Sepsis Event Evaluation Height, Weight, BMI Height: '" Weight: lbs. oz. kg; 38.94 BMI Method: Exam Exam Vital Signs Date Time Temp Pulse Resp B/P (MAP) Pulse Ox O2 Delivery O2 Flow Rate FiO2 09/06/19 03:47 Room Air 09/06/19 03:43 36.7 75 18 105/69 (81) 93 09/06/19 01:00 85 09/06/19 00:19 103 97 21 09/06/19 00:00 82 18 130/86 (101) 96 09/05/19 23:57 Room Air 09/05/19 23:45 84 18 129/86 (100) 95 09/05/19 23:36 Room Air 09/05/19 23:30 88 18 136/89 (105) 99 09/05/19 23:15 82 18 138/91 (107) 97 Room Air 09/05/19 23:06 91 09/05/19 23:00 37.0 84 18 175/124 (141) 94 Room Air 09/05/19 22:46 80 20 124/71 95 09/05/19 18:45 37.4 103 20 148/102 (117) 97 I & O 09/06/19 07:00 Intake Total 1740 ml Balance 1740 ml Height & Weight Height: '" Weight: lbs. oz. kg; 38.94 BMI Method: General Appearance: No Apparent Distress, WD/WN, Other (DOES NOT APPEAR ILL OR TO BE IN ANY DISCOMFORT OR DISTRESS) HEENT: PERRL/EOMI Neck: Full Range of Motion, Normal Inspection, Non Tender, Supple Respiratory: Normal Breath Sounds, No Accessory Muscle Use, No Respiratory Distress Cardiovascular: Regular Rate, Rhythm, No JVD, No Murmur, Normal Peripheral Pulses Capillary Refill: Less Than 3 Seconds Extremity: Normal Capillary Refill, Normal Range of Motion, Calf Tenderness (RIGHT), Other (SWELLING AND FIRMNESS AND TENDERNESS TO RIGHT CALF. NO DISCOLORATION. NO SWELLING AT FOOT OR ANKLE OR ANTERIOR TIBIA. NO CORDING. 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
[2019-09-06] MEDS: PIPERACILLIN/TAZO 4.5 GM/NS 100 ML IV SCH ×6 (06:16→22:16)
--- NOTE | 2019-09-06 07:19 | History & Physicial ---
History of Present Illness History of Present Illness Reason for visit/HPI 49-year-old male admitted through the emergency department during the late evening of September 05, 2019 with right lower extremity pain and initially mild shortness of breath. [place] [facility] [place] where they felt he possibly had pulmonary embolism and sent him to [facility] emergency department. Patient apparently has had these symptoms over the last 1 week and tends fine last night. He has had a low-grade fever as well as. Patient does have myasthenia gravis and this was diagnosed within the last 2 years. He does go to [facility] for his myasthenia gravis and is on prednisone, Tacrolimus and mestinol. Date of Admission Sep 05, 2019 at 21:30 Date Seen by a Provider: Sep 06, 2019 Time Seen by a Provider: 07:00 I consulted on this patient on 09/06/19 07:13 Attending Physician Hans Oakley MD Admitting Physician Hans Oakley MD Consult Allergies and Home Medications Allergies Coded Allergies: No Allergy Information Available (Unverified , 02/17/18) Patient Home Medication List Home Medication List Reviewed: Yes Past Fihbkxg-Qyoxuf-Enxbzi Hx Patient Social History Marrital Status: Employed/Student: unemployed Alcohol Use: Past History (NONE FOR 20 YEARS) Recreational Drug Use: No Smoking Status: Former Smoker (QUIT 20 YEARS AGO) Recent Foreign Travel: No Contact w/other who traveled: No Recent Infectious Disease Expo: No Surgeries Yes (L ELBOW;R ROTATOR CUFF X2;BILAT KNEE SCOPES;R ANIKLE FX/ORIF;THYMUS ROSALIA DOMENICO) Orthopedic Respiratory Yes (PNEUMONIA SEVERAL TIMES) Cardiovascular Yes Hypertension Neurological Yes (MYASTHENIA GRAVIS) Genitourinary No Gastrointestinal Yes Chronic Diarrhea Musculoskeletal Yes (MULTIPLE ORTHO SURGERIES) Fractures Endocrine History of Endocrine Disorders: No HEENT History of HEENT Disorders: No Cancer No Psychosocial History of Psychiatric Problem: No Integumentary History of Skin or Integumenta: No Blood Transfusions History of Blood Disorders: No Adverse Reaction to a Blood Tr: No Family Medical History Family Hx: Patient reports no known family medical history. Review of Systems Constitutional: see HPI Physical Exam Vital Signs Vital Signs - First Documented 09/05/19 09/05/19 09/06/19 18:45 23:00 00:19 Temp 37.4 Pulse 103 Resp 20 B/P (MAP) 148/102 (117) Pulse Ox 97 O2 Delivery Room Air FiO2 21 Capillary Refill : Less Than 3 Seconds Height, Weight, BMI Height: '" Weight: lbs. oz. kg; 38.94 BMI Method: General Appearance: No Apparent Distress Eyes: Bilateral Eye Normal Inspection HEENT: Pharynx Normal Neck: Supple Respiratory: Lungs Clear (With mild decreased breath sounds on the right) Cardiovascular: Regular Rate, Rhythm; No Diastolic Murmur, No Systolic Murmur, No Irregularly Irregular Gastrointestinal: Soft Rectal: Deferred Extremity: Normal Capillary Refill, Calf Tenderness (Noted mid position on the right side) Neurologic/Psychiatric: Alert, Oriented x3 Comments NAME: JESUS BELTRE JR [facility] REC#: [id number] PT STATUS: REG ER : 1970 PHYSICIAN: JOSE MARTIN LOPEZ DO ADMIT DATE: 09/05/19/ER Signed Date of Exam:09/05/19 CT ANGIO CHEST/ABD W PROCEDURE: CT angiography of the abdomen and chest with and without contrast. TECHNIQUE: After intravenous administration of contrast, thin section axial CT angiography of the abdomen and chest were obtained. 3D MIP reformats were provided. Auto Exposure Controls were utilized during the CT exam to meet ALARA standards for radiation dose reduction. INDICATION: Weakness and fever. FINDINGS: There is some pulmonary embolism in the right upper lobe pulmonary artery. There is minimal pulmonary embolism in the right lower lobe subsegmental branch. There are no discrete pulmonary nodules, masses or infiltrates. There is no pleural or pericardial fluid. There is no pneumothorax. There is no pathologically enlarged adenopathy in the chest. Thoracic aorta is normal in caliber and without evidence of dissection. The visualized intra-abdominal structures are unremarkable. IMPRESSION: 1. Examination is positive for pulmonary embolism to the right upper lobe and right lower lobe, as described. Report given to Murali Ferreira APRN, at 9:29 PM 09/05/2019/rocco Dictated by: Dictated on workstation # [id number] Dict: 09/05/192114 Trans: 09/05/192139 [facility] [id number] Interpreted by: MARA JOHANSEN MD Electronically signed by: MARA JOHANSEN MD 09/05/192139 Assessment/Plan Assessment and Plan 1. Right upper and right lower pulmonary embolism -Lovenox has been initiated twice a day -Pulmonary consultation 2. Suspected right-sided DVT -Awaiting Doppler study right lower extremity this morning 3. Myasthenia gravisknown -He will be continued on his home medications tacrolimus as well as Mestinol 4. Febrile COVID-19 PUI -[place] [facility] [place]Precautions taken Admission Diagnosis 1. Right upper and right lower pulmonary embolism 2. Suspected right-sided DVT 3. Myasthenia gravisknown 4. Febrile COVID-19 PUI Admission Status: Inpatient Order (span 2 midnights) Reason for Inpatient Admission: Anticoagulation Clinical Quality Measures DVT/VTE Risk/Contraindication: Risk Factor Score Per Nursin RFS Level Per Nursing on Admit: 3=High HANS OAKLEY MD Sep 06, 2019 07:19
--- NOTE | 2019-09-06 07:53 | NUR ---
VANCOMYCIN DOSING SCR 1.01; ADJ BW 95 KG; CRCL ~ 117; BOLUS VANC 2 GM GIVEN IN ED THEN VANC 15 MG/KG X 126 KG ~ 1750 MG Q12H CHECK TROUGH LEVEL 09/06 0900 HOLD DOSE AND CONTACT PHARMACY IF LEVEL IS GREATER THAN 20
--- NOTE | 2019-09-06 08:40 | Diagnostic Imaging Report ---
PROCEDURE: US right lower extremity venous. TECHNIQUE: Multiple real-time grayscale images were obtained over the right lower extremity in various projections. Additional spectral analysis and color Doppler duplex images were also obtained. INDICATION: History of pulmonary embolus. Right leg pain. COMPARISON: None FINDINGS: There is extensive mixed occlusive and partially occlusive thrombus of the femoral vein extending through the popliteal vein and into the distal calf veins. The common femoral and profunda femoral vein show normal compressibility, augmentation, and color flow. Common femoral and profunda femoral veins are patent. IMPRESSION: 1. Extensive DVT of the right lower extremity. Dictated by: Dictated on workstation # [id number]
[2019-09-06] MEDS: VANCOMYCIN INJECTION 1,750 MG in NS IV 500 ML 500 ML IV SCH ×2 (11:21→22:16)
[2019-09-06] MEDS ORDERED: ENOXAPARIN 300 MG/3 ML (LOVENOX) MULTI-DOSE VIAL SQ SCH (12:00)
[2019-09-06] MEDS ORDERED: CALC-250 PO (14:27)
--- NOTE | 2019-09-06 14:31 | Consultation-Cardiology ---
HPI-Cardiology Cardiology Consultation: Date of Consultation 09/06/19 Date of Admission Attending Physician Hans Mendez MD Admitting Physician Hans Mendez MD Consulting Physician Greg SHIRLEY MD HPI: Time Seen by a Provider: 14:00 Chief Complaint: Right lower external to swelling This is a 49-year-old gentleman who has history of myasthenia gravis and follows at . He presented to the ER with complains of right lower leg pain and swell ing for one week. Difficulty walking. No history of injury. Complained of fever and chills day before yesterday. However denies any chest pain, shortness of breath, palpitations. COVID testing was performed. Previous history of pneumonia. Previous history of smoking however quit smoking and alcohol use for a few years now. No known loss cardiac history. Has history of hypertension. Family history is negative. He was found to have right lung PE and right lower extremity femoral DVT. When I saw the patient is not complaining of shortness of breath. He is likely stable. Review of Systems-Cardiology Review of Systems Constitutional: As described under HPI; No As described under HPI, No no symptoms reported, No chills, No fever, No lightheadedness Eyes: No As described under HPI, No no symptoms reported, No blindness, No blurred vision, No contact lenses, No drainage, No decreased acuity, No foreign body sensation, No pain, No vision change Ears/Nose/Throat: No As described under HPI, No no symptoms reported, No chronic hearing loss, No ear discharge, No ear pain, No nasal drainage, No ulcerations Respiratory: No no symptoms reported; As described under HPI; No As described under HPI, No cough, No orthopnea, No shortness of breath, No SOB with excertion Cardiovascular: No no symptoms reported; As described under HPI; No As described under HPI, No chest pain, No edema, No irregular heart rate, No lightheadedness, No palpitations Gastrointestinal: No no symptoms reported, No As described under HPI, No abdomen distended, No abdominal pain, No blood streaked bowels, No constipation, No diarrhea, No nausea, No vomiting, No stool coloration changes Genitourinary: No As described under HPI, No burning, No dysuria, No discharge, No frequency, No flank pain, No hematuria, No urgency Musculoskeletal: As describe under HPI Skin: No rash, No skin related problems, No ulcerations Psychiatric/Neurological: No anxiety, No depression, No seizure, No focal weakness, No syncope Hematologic: No bleeding abnormalities AXI-Lxysno-Dryhjs Hx Patient Social History Marrital Status: Employed/Student: unemployed Alcohol Use: Past History (NONE FOR 20 YEARS) Recreational Drug Use: No Smoking Status: Former Smoker (QUIT 20 YEARS AGO) Recent Foreign Travel: No Recent Infectious Disease Expo: No Past Medical History PMH As described under Assessment. Family Medical History Family History: Patient reports no known family medical history. Allergies and Home Medications Allergies Coded Allergies: No Allergy Information Available (Unverified , 02/17/18) Home Medications Cholecalciferol (Vitamin D3) 125 Mcg Tablet, 125 MCG PO DAILY, (Reported) Prednisone 5 Mg Tablet, 5 MG PO DAILY, (Reported) Pyridostigmine [place] 60 Mg Tablet, 60 MG PO QID, (Reported) Tacrolimus 1 Mg Capsule, 1 MG PO BID, (Reported) TAKES 1MG AND 0.5MG AT THE SAME TIME TWICE DAILY Tacrolimus 0.5 Mg Capsule, 0.5 MG PO BID, (Reported) TAKES 1MG AND 0.5MG AT THE SAME TIME TWICE DAILY Patient Home Medication List Home Medication List Reviewed: Yes Physical Exam-Cardiology Physical Exam Vital Signs/I&O 09/06/19 09/06/19 09/06/19 09/06/19 03:43 03:47 06:51 08:00 Temp 36.7 Pulse 75 79 Resp 18 B/P (MAP) 105/69 (81) Pulse Ox 93 O2 Delivery Room Air Room Air 09/06/19 09/06/19 09/06/19 09/06/19 08:00 09:00 11:44 12:00 Temp 36.6 36.6 Pulse 85 105 Resp 20 20 B/P (MAP) 138/78 (98) 148/90 (109) Pulse Ox 95 97 O2 Delivery Room Air Room Air 09/06/19 12:46 Pulse 100 09/06/19 00:00 Intake Total 1000 ml Balance 1000 ml Capillary Refill : Less Than 3 Seconds Constitutional: appears stated age, AAO x 3; No apparent distress; well- developed, well-nourished HEENT: PERRL; No discharge; hearing is well preserved, oral hygience is good; No ulceration, No xanthelasmas are seen Neck: No carotid bruit; carotid pulses are 2 + bilaterally Respiratory: chest is bilaterally symmetric, lungs clear to auscultation Cardiovascular: regular rate-rhythm, S1 and S2; No diastolic murmur, No systolic murmur Gastrointestinal: soft, audible bowel sounds; No spleenomegaly Rectal: deferred Extremities: normal range of motion, non-tender, normal inspection; No clubbing, No cyanosis, No significant edema Neurologic/Psychiatric: no motor/sensory deficits, alert, normal mood/affect, oriented x 3, power is 5/5 both on sides Skin: normal color, warm/dry; No rash, No ulcerations Data Review Labs Laboratory Tests 09/05/19 19:00: White Blood Count 10.0, Red Blood Count 5.13, Hemoglobin 15.7, Hematocrit 44, Mean Corpuscular Volume 86, Mean Corpuscular Hemoglobin 31, Mean Corpuscular Hemoglobin Concent 36, Red Cell Distribution Width 13.0, Platelet Count 219, Mean Platelet Volume 8.9, Neutrophils (%) (Auto) 73, Lymphocytes (%) (Auto) 18, Monocytes (%) (Auto) 8, Eosinophils (%) (Auto) 1, Basophils (%) (Auto) 0, Neutrophils # (Auto) 7.3, Lymphocytes # (Auto) 1.8, Monocytes # (Auto) 0.8, Eosinophils # (Auto) 0.1, Basophils # (Auto) 0.0, Erythrocyte Sedimentation Rate 8, Prothrombin Time 13.2, INR Comment 1.0, Activated Partial Thromboplast Time 28, D-Dimer 19.37H, Sodium Level 135, Potassium Level 3.9, Chloride Level 100, Carbon Dioxide Level 21, Anion Gap 14, Blood Urea Nitrogen 15, Creatinine 1.17, Estimat Glomerular Filtration Rate > 60, BUN/Creatinine Ratio 13, Glucose Level 101, Lactic Acid Level 1.33, Calcium Level 9.6, Corrected Calcium 9.2, Magnesium Level 1.6, Total Bilirubin 1.3H, Aspartate Amino Transf (AST/SGOT) 22, Alanine A minotransferase (ALT/SGPT) 31, Alkaline Phosphatase 106, Lactate Dehydrogenase 238H, Total Creatine Kinase 105, Creatine Kinase MB 0.9, Myoglobin 56.7, Troponin I < 0.028, C-Reactive Protein High Sensitivity 2.30H, B-Type Natriuretic Peptide < 10.0, Total Protein 7.6, Albumin 4.5, Amylase Level 82, Lipase 64, Procalcitonin 0.05 09/05/19 21:33: 09/05/19 22:11: Urine Color YELLOW, Urine Clarity CLEAR, Urine pH 6.5, Urine Specific [place] <=1.005, Urine Protein NEGATIVE, Urine Glucose (UA) NEGATIVE, Urine Ketones TRACEH, Urine Nitrite NEGATIVE, Urine Bilirubin NEGATIVE, Urine Urobilinogen 0.2, Urine Leukocyte Esterase NEGATIVE, Urine RBC (Auto) TRACE-L, Urine RBC RARE, Urine WBC NONE, Urine Squamous Epithelial Cells RARE, Urine Crystals NONE, Urine Bacteria NEGATIVE, Urine Casts NONE, Urine Mucus NEGATIVE, Urine Culture Indicated NO 09/06/19 04:05: White Blood Count 9.1, Red Blood Count 4.69, Hemoglobin 14.4, Hematocrit 40, Mean Corpuscular Volume 86, Mean Corpuscular Hemoglobin 31, Mean Corpuscular Hemoglobin Concent 36, Red Cell Distribution Width 13.0, Platelet Count 197, Mean Platelet Volume 9.0, Neutrophils (%) (Auto) 87H, Lymphocytes (%) (Auto) 10L , Monocytes (%) (Auto) 3, Eosinophils (%) (Auto) 0, Basophils (%) (Auto) 0, Neutrophils # (Auto) 7.9H, Lymphocytes # (Auto) 0.9L, Monocytes # (Auto) 0.2, Eosinophils # (Auto) 0.0, Basophils # (Auto) 0.0, Sodium Level 135, Potassium Level 4.3, Chloride Level 105, Carbon Dioxide Level 18L, Anion Gap 12, Blood Urea Nitrogen 14, Creatinine 1.01, Estimat Glomerular Filtration Rate > 60, BUN/Creatinine Ratio 14, Glucose Level 148H, Calcium Level 9.0, Corrected Calcium 9.0, Total Bilirubin 1.5H, Aspartate Amino Transf (AST/SGOT) 18, Alanine Aminotransferase (ALT/SGPT) 25, Alkaline Phosphatase 79, Total Protein 6.7, Albumin 4.0 ECG Impression ECG Initial ECG Rhythm: Normal Sinus A/P-Cardiology Assessment/Admission Diagnosis Acute PE, Acute right lower extremity DVT, Hypertension, Myasthenia gravis Plan Acute PE, Acute right lower extremity DVT, I have reviewed the CT angiography as well as the venous ultrasound. Patient has right lung PE, with no shortness of breath and stable vital signs. Therefore pulmonary embolism intervention is not recommended. Right lower extremity DVT is in the popliteal and femoral vein. No extension is seen in the iliac veins. IVC filter is not recommended. Therefore will recommend medical therapy with oral anticoagulation alone. Patient is on Lovenox. Will recommend changing to either Eliquis or Xarelto. Pharmacy to dose. Will defer the primary team and Dr. Lynn. Hypertension, continue outpatient medical therapy. Myasthenia gravis, defer to the primary team. Thank you for your consultation. Please call me if you have any questions. Kaye Shirley MD, FACP, FACC, FSCAI, FHRS, CCDS Interventional Cardiology Cardiac Electrophysiology Vascular Medicine and Endovascular Interventions Clinical Quality Measures DVT/VTE Risk/Contraindication: Risk Factor Score Per Nursin RFS Level Per Nursing on Admit: 3=High Greg SHIRLEY MD Sep 06, 2019 14:31
[2019-09-06] MEDS ORDERED: LISI10TA2 PO (15:18)
--- NOTE | 2019-09-06 15:20 | NUR ---
SPOKE WITH THE PT (VIA HIS ROOM PHONE), WENT THRU THE EXT MED HISTORY AND CALLED [facility] TO COMPLETE THE MED REC PT GETS LISINOPRIL FROM THE CLINIC AT HIS WORK ([employer]) THAT IS RUN BY [facility]. PT DOESNT KNOW THE STRENGTH THEREFORE I REACHED OUT TO [facility] FOR THE MED INFORMATION WELL WHEN THE LAST TIME IT WAS FILLED. I HAD TO LEAVE A MESSAGE BUT DID INCLUDE IT ON THE MED REC WITH AN UNKNOWN DOSE. OT MEDS: VIT D Addendum: 09/07/19 at 1046 by CHRISTIE GALVAN CPhT RECEIVED A VOICE MAIL FROM [facility] REGARDING LISINOPRIL- ACCORDING TO THEIR RECORDS HE IS TAKING LISINOPRIL 20MG 1 TAB DAILY LAST FILLED 09-01-2019 #30. THE PT IS BEING DISCHARGED AND THE ORDERS ARE ALREADY PUT IN
[2019-09-06] MEDS ORDERED: PATIENT MAY USE OWN MEDS, ALL MC SCH (17:45)
[2019-09-06] MEDS: PYRIDOSTIGMINE 60 MG TAB (MESTINON) NON-FORMULARY PO SCH (22:15)
[2019-09-06] MEDS: APIXABAN 5 MG (ELIQUIS) TABLET PO SCH (22:16)
[2019-09-07 02:47] VITALS: BP 126/75
[2019-09-07] MEDS: PIPERACILLIN/TAZO 4.5 GM/NS 100 ML IV SCH ×2 (05:39)
[2019-09-07] MEDS: methylPREDNISolone 40 MG/ML (Solu-MEDROL) VIAL IV SCH (05:39)
--- NOTE | 2019-09-07 06:40 | Pulmonary Progress Note ---
Subjective Time Seen by a Provider: 06:37 Subjective/Events-last exam Pt appears to be doing better. Sepsis Event Evaluation Height, Weight, BMI Height: '" Weight: lbs. oz. kg; 38.94 BMI Method: Focused Exam Lactate Level 09/05/19 19:00: Lactic Acid Level 1.33 Exam Exam Vital Signs Date Time Temp Pulse Resp B/P (MAP) Pulse Ox O2 Delivery O2 Flow Rate FiO2 09/07/19 04:00 Room Air 09/07/19 02:47 36.6 73 20 126/75 (92) 98 Room Air 09/07/19 01:00 62 09/07/19 00:00 Room Air 09/06/19 22:45 36.4 87 20 131/86 (101) 93 Room Air 09/06/19 20:45 Room Air 09/06/19 20:45 Room Air 09/06/19 20:00 37.0 91 20 143/92 (109) 95 Room Air 09/06/19 19:00 89 09/06/19 15:51 37.2 97 20 121/73 (89) 95 Room Air 09/06/19 15:36 36.6 105 97 21 09/06/19 15:10 Room Air 09/06/19 12:46 100 09/06/19 12:00 36.6 105 20 148/90 (109) 97 09/06/19 11:44 Room Air 09/06/19 09:00 Room Air 09/06/19 08:00 36.6 85 20 138/78 (98) 95 09/06/19 08:00 Room Air 09/06/19 06:51 79 I & O 09/07/19 07:00 Intake Total 2875.0 ml Balance 2875.0 ml Height & Weight Height: '" Weight: lbs. oz. kg; 38.94 BMI Method: General Appearance: No Apparent Distress HEENT: Pharynx Normal Neck: Supple Respiratory: Lungs Clear (With mild decreased breath sounds on the right) Cardiovascular: Regular Rate, Rhythm; No Diastolic Murmur, No Systolic Murmur, No Irregularly Irregular Capillary Refill: Less Than 3 Seconds Extremity: Normal Capillary Refill, Calf Tenderness (Noted mid position on the right side) Neurologic/Psychiatric: Alert, Oriented x3 Skin: Normal Color, Warm/Dry; No Rash Results Lab Laboratory Tests 09/05/19 19:00 09/06/19 04:05 Assessment/Plan Assessment/Plan Acute PE with DVT - unprovoked 1st PE -continue Eliquis -Strong consideration of life long anticoagulation unless contraindication arises Fever r/o COVID -Currently on Vanco and Zosyn -D/C abx -- doubt infection -Perez cultures pending Hx of Myasthenia Gravis -Solumedrol - Change back to home prednisone dose. -Continue home meds Pt is ok for discharge from pulmonary standpoint with Eliquis. IDALMIS WEAVER DO Sep 07, 2019 06:40
[2019-09-07] MEDS ORDERED: predniSONE 5 MG TAB PO SCH (07:00)
--- NOTE | 2019-09-07 07:17 | Discharge Summary ---
Diagnosis/Chief Complaint Date of Admission Sep 05, 2019 at 21:30 Date of Discharge September 07, 2019 Discharge Date: Sep 07, 2019 Discharge Time: 10:00 Admission Diagnosis Admission Diagnosis 1. Pulmonary embolism right upper and right lower lung Discharge Diagnosis 1. Pulmonary embolism right upper and right lower lung 2. Right lower extremity DVT 3. Myasthenia gravisknown Reason Hospital Visit 49-year-old male admitted through the emergency department during the late evening of September 05, 2019 with right lower extremity pain and initially mild shortness of breath. He was initially seen at [facility] [place] where they felt he possibly had pulmonary embolism and sent him to via [facility] emergency department. Patient apparently has had these symptoms over the last 1 week and tends fine last night. He has had a low-grade fever as well as. Patient does have myasthenia gravis and this was diagnosed within the last 2 years. He does go to [facility] for his myasthenia gravis and is on prednisone, Tacrolimus and mestinol. Discharge Summary Hospital Course Was the Problem List Reviewed?: Yes Hospital Course Patient was admitted during the late p.m. of September 05, 2019 with pulmonary embolism to the right upper and lower lobe. He was started on Lovenox twice daily. He was also placed on vancomycin through the emergency department in case patient had cellulitis or infection of the lower extremity on the right. During the morning of September 06, 2019 had Doppler study to the right lower extremity which revealed extensive DVT. Pulmonary was consult as well as cardiology. He was ultimately felt to be a nonsurgical candidate for retrieving the clot. He remained with stable vital signs and was in no acute respiratory distress. Also on the day of September 05 he was started on Eliquis 10 mg twice daily. He was maintained on his home medication physostigmine. Ultimately he was felt ready for dismissal during the morning of September 07, 2019. He will stay on Eliquis at 10 mg twice daily for a full 7 days and then be dropped to 5 mg twice daily for the remainder of treatment. Further discussion is that he may need to stay on this for life due to his underlying myasthenia gravis. Labs Laboratory Tests 09/05/19 19:00: D-Dimer 19.37H, Total Bilirubin 1.3H, Lactate Dehydrogenase 238H, C-Reactive Protein High Sensitivity 2.30H 09/05/19 21:33: 09/05/19 22:11: Urine Ketones TRACEH 09/06/19 04:05: Total Bilirubin 1.5H, Neutrophils (%) (Auto) 87H, Lymphocytes (%) (Auto) 10L, Neutrophils # (Auto) 7.9H, Lymphocytes # (Auto) 0.9L, Carbon Dioxide Level 18L, Glucose Level 148H Procedures None. Consultations 1. Pulmonology Dr Lynn 2. Cardiology Discharge Physical Examination Allergies: Coded Allergies: No Allergy Information Available (Unverified , 02/17/18) Vitals & I&Os Vital Signs Date Time Temp Pulse Resp B/P (MAP) Pulse Ox O2 Delivery O2 Flow Rate FiO2 09/07/19 04:00 Room Air 09/07/19 02:47 36.6 73 20 126/75 (92) 98 09/06/19 15:36 21 General Appearance: Alert, No Acute Distress Respiratory: Clear to Auscultation Cardiovascular: Regular Rate Abdominal: Soft Extremities: Other (Slight edema of the right lower extremity but no significant tenderness) Neuro: Normal Gait, Normal Speech Psych/Mental Status: Mental Status NL Discussion & Recommendations Patient was informed to follow-up with myself within the next week. He understands not to overdo activity. He is not currently working due to the myasthenia gravis. He was informed that he may continue to do routine daily life functioning. Discharge Home Medications Reviewed and agree with Discharge Medication list on patient's Discharge Instruction sheet Instructions to Patient/Family Please see electronic discharge instructions given to patient. Clinical Quality Measures DVT/VTE Risk/Contraindication: Risk Factor Score Per Nursin RFS Level Per Nursing on Admit: 3=High JESENIA OAKLEY MD Sep 07, 2019 07:16
[2019-09-07] MEDS ORDERED: APIX5TAB PO (07:20)
--- NOTE | 2019-09-07 07:23 | Discharge Inst-Simple/Standard ---
Discharge Inst-Standard Reconcile Patient Problems Problems Reviewed?: Yes Discharge Medications New, Converted or Re-Newed RX: Transmitted to Pharmacy ([facility]) Patient Instructions/Follow Up Plan of Care/Instructions/FU: Follow-up with Dr. Oakley on September 12 or . For the first week take 2 tablets or 10 mg twice daily of the Eliquis. After the first week decrease to 1 tablet or 5 mg twice daily. For now you will stay on this medication indefinitely. Activity as Tolerated: Yes (But with retractions as mentioned) Discharge Diet: Regular Diet Return to The Hospital For: Significant shortness of breath or worsening right leg pain or swelling Planned Outpatient Orders/Ref. Pneu Vac Indicated: Yes JESENIA OAKLEY MD Sep 07, 2019 07:23
[2019-09-07 08:00] VITALS: BP 124/70
[2019-09-07] MEDS ORDERED: VITAMIN D3 125 MCG (5,000 UNITS) CAPSULE PO SCH (09:00)
[2019-09-07] MEDS ORDERED: TROUGH ORDER-PHARMACY XX NR (09:00)
[2019-09-07] MEDS ORDERED: lisINopril 10 MG (PRINIVIL) TABLET PO SCH (09:00)
[2019-09-07] MEDS: PYRIDOSTIGMINE 60 MG TAB (MESTINON) NON-FORMULARY PO SCH (09:46)
[2019-09-07] MEDS: APIXABAN 5 MG (ELIQUIS) TABLET PO SCH (09:47)
[2019-09-07 11:10] VITALS: BP 124/70
== END 2019-09-07 11:10 | disposition home or self-care (01) | DRG 176 ==
LOC: EDUNIT# 18:51 → ER 18:55 → CSD 21:30
PROVIDERS: ADMIT Family Medicine; ATTEND Family Medicine
DX: I26.99 Other pulmonary embolism without acute cor pulmonale (principal); I82.401 Acute embolism and thrombosis of unspecified deep veins of right lower extremity; G70.00 Myasthenia gravis without (acute) exacerbation; I10 Essential (primary) hypertension
CPT/HCPCS: 36415; 71045; 71275; 74175; 80053; 81000; 82150; 82550; 82553; 83605; 83615; 83690; 83735; 83874; 83880; 84145; 84484; 85025; 85379; 85610; 85652; 85730; 86141; 87040; 87635; 93005; 93041

== ENCOUNTER → 2020-01-03 | Outpatient (CLI) | payer OTHER ==
[~2020-01-03] MED LIST changes: +APIX5TAB PO; +CALC-250 PO; +DOXY100T2; -LIDOCAINE 1% INJ 20 ML 20 ML VIAL INJ ONE; -LIDOCAINE 1% INJ 20 ML 20 ML VIAL ONE; +LISI10TA2 PO; +PRED5TAB PO; +PYRI60TA PO; +TACR0.5C6 PO; +TACR1CAP8 PO
--- NOTE | 2020-01-03 08:53 | Diagnostic Imaging Report ---
INDICATION: Long-term steroid use, myasthenia gravis. Family history of osteoporosis. COMPARISON: None FINDINGS: AP Spine L2-L4: [BMD (g/cm2): 1.108] [T-Score: -1.1] [Z-Score: -1.6] [BMD Previous: NA] [BMD % Change: NA] LT Hip Neck: [BMD (g/cm2): 1.152] [T-Score: 0.6] [Z-Score: 0.8] LT Hip Total: [BMD (g/cm2):1.192] [T-Score:0.6] [Z-Score: 0.5] [BMD Previous: NA] [BMD % Change: NA] RT Hip Neck: [BMD (g/cm2):1.048] [T-Score:-0.2] [Z-Score:0.0] RT Hip Total: [BMD (g/cm2):1.097] [T-score:0.0] [Z-Score:-0.1] [BMD Previous:NA] [BMD % Change:NA] *Indicates significant change from prior examination based on 95% confidence level. World Health Organization criteria for BMD interpretation classify patients as Normal (T-score at or above -1.0), Osteopenic (T-score between -1.0 and -2.5) or Osteoporotic (T-score at or below -2.5). LIMITATIONS AND MODIFICATION: None. FRACTURE RISK (FRAX SCORE): The ten year probability of (%): Major Osteoporotic Fracture: [4.2] Hip Fracture: [0.1] IMPRESSION: 1. Osteopenia (Low bone mass). 2. Baseline examination. 3. See below National Osteoporosis Foundation guidelines on when to potentially initiate pharmacologic therapy. Based on the National Osteoporosis Foundation Guidelines, pharmacologic treatment should be initiated in any of the following, unless clinical conditions suggest otherwise: * Any patient with prior fragility fracture of the hip or vertebrae. A spine fracture indicates 5X risk for subsequent spine fracture and 2X risk for subsequent hip fracture. * Osteoporosis (T-score <-2.5). * Postmenopausal women and men age 50 and older with low bone mass/osteopenia (T-score between -1.0 and -2.5) by DXA and 10-year major osteoporotic fracture greater than 20% or a 10-year probability of hip fracture greater than 3%. These fracture risks are supplied above in the FRAX score, if applicable. * Clinician judgement and/or patient preferences may indicate treatment for people with 10-year fracture probabilities above or below these levels. Dictated by: Dictated on workstation # [id number]
== END ==
LOC: RAD 09:00
PROVIDERS: ATTEND Psychiatry & Neurology Neuromuscular Medicine
DX: Z13.820 Encounter for screening for osteoporosis (principal); M85.80 Other specified disorders of bone density and structure, unspecified site; G70.00 Myasthenia gravis without (acute) exacerbation; Z82.62 Family history of osteoporosis
CPT/HCPCS: 77080

== ENCOUNTER → 2022-07-29 | Outpatient (CLI) | payer MEDICARE, OTHER ==
[~2022-07-29] MED LIST changes: -LISI10TA2 PO; +LISI10TA25 PO
--- NOTE | 2022-07-29 13:11 | Diagnostic Imaging Report ---
Indication: Left knee pain. Time of Exam: 12:19 PM 4 views of the left knee were obtained. There is significant medial compartmental degenerative change with joint space narrowing and marginal spurring. Lateral compartment and patellofemoral compartments are fairly well maintained. There is a well-corticated osseous ovoid density projected just inferior to the patella on the lateral view. This could potentially represent a loose body. No fractures are seen. There is no joint effusion. Impression: Degenerative changes and potential loose body. No acute bony abnormality is detected. Dictated by: Dictated on workstation # [id number]
== END ==
LOC: ORTHO 12:11
PROVIDERS: ATTEND Orthopaedic Surgery
DX: M17.12 Unilateral primary osteoarthritis, left knee (principal); M23.42 Loose body in knee, left knee
CPT/HCPCS: 73564; G0463; 99213

== ENCOUNTER → 2022-08-05 | Outpatient (CLI) | payer MEDICARE | LOC: ORTHO 13:03 | PROVIDERS: ATTEND Orthopaedic Surgery | DX: M17.12 Unilateral primary osteoarthritis, left knee (principal); I10 Essential (primary) hypertension | CPT/HCPCS: 20610 ==

== ENCOUNTER → 2022-10-07 | Outpatient (CLI) | payer MEDICARE | LOC: ORTHO 09:37 | PROVIDERS: ATTEND Orthopaedic Surgery | DX: M17.12 Unilateral primary osteoarthritis, left knee (principal) | CPT/HCPCS: 99213 ==

== ENCOUNTER → 2022-11-04 | Outpatient (CLI) | payer MEDICARE ==
[2022-11-04 09:54] LABS: BASOPHILS # (AUTO) 0.1 10^3/uL (0.0-0.1); BASOPHILS % (AUTO) 1 % (0-10); EOSINOPHILS # (AUTO) 0.2 10^3/uL (0.0-0.3); EOSINOPHILS % (AUTO) 3 % (0-10); HEMATOCRIT 47 % (40-54); HEMOGLOBIN 16.3 g/dL (13.3-17.7); LYMPHOCYTES # (AUTO) 1.8 10^3/uL (1.0-4.0); LYMPHOCYTES % (AUTO) 26 % (12-44); MEAN CORPUSCULAR HEMOGLOBIN 31 pg (25-34); MEAN CORPUSCULAR HGB CONC 35 g/dL (32-36); MEAN CORPUSCULAR VOLUME 89 fL (80-99); MEAN PLATELET VOLUME 8.5 fL (9.0-12.2); MONOCYTES # (AUTO) 0.6 10^3/uL (0.0-1.0); MONOCYTES % (AUTO) 9 % (0-12); NEUTROPHILS # (AUTO) 4.2 10^3/uL (1.8-7.8); NEUTROPHILS % (AUTO) 61 % (42-75); PLATELET COUNT 281 10^3/uL (130-400); WHITE BLOOD COUNT 6.9 10^3/uL (4.3-11.0)
[2022-11-04 10:19] LABS: CREATININE SERUM 1.17 MG/DL (0.60-1.30); POTASSIUM 4.1 MMOL/L (3.6-5.0)
[2022-11-04 10:32] LABS: CLARITY,URINE CLEAR; COLOR,URINE YELLOW
[2022-11-04 10:33] LABS: BACTERIA,URINE NEGATIVE /HPF; BILIRUBIN,URINE NEGATIVE (NEGATIVE); GLUCOSE, URINE (UA) NEGATIVE (NEGATIVE); KETONES,URINE NEGATIVE (NEGATIVE); LEUKOCYTE ESTERASE ,URINE NEGATIVE (NEGATIVE); NITRITE,URINE NEGATIVE (NEGATIVE); PROTEIN,URINE NEGATIVE (NEGATIVE)
--- NOTE | 2022-11-04 15:09 | Diagnostic Imaging Report ---
Preoperative evaluation. EXAMINATION: Two-view chest 11/04/2022 COMPARISON: 09/05/2019 FINDINGS: The heart and pulmonary vasculature appear normal. The lungs and pleural spaces clear. No infiltrates, effusions or pneumothorax. IMPRESSION: No acute cardiopulmonary process. Dictated by: Dictated on workstation # [id number]
== END ==
LOC: ORTHO 08:48
PROVIDERS: ATTEND Orthopaedic Surgery
DX: M17.12 Unilateral primary osteoarthritis, left knee (principal); I10 Essential (primary) hypertension; E66.9 Obesity, unspecified; Z82.49 Family history of ischemic heart disease and other diseases of the circulatory system
CPT/HCPCS: 36415; 71046; 80048; 81000; 85025

== ENCOUNTER → 2022-11-17 | Outpatient (CLI) | payer MEDICARE ==
[~2022-11-17] MED LIST changes: +AMLO-250 PO; +APIX2.5T PO; +HYDR-34 PO; +LISI40TA9 PO
== END ==
LOC: RT 08:47
PROVIDERS: ATTEND Psychiatry & Neurology Neuromuscular Medicine
DX: G70.00 Myasthenia gravis without (acute) exacerbation (principal)
CPT/HCPCS: 94060; 94726; 94729

== ENCOUNTER 2022-11-24 06:08 | Day surgery (SDC) | payer MEDICARE ==
[~2022-11-24] VITALS: Ht 177.8 cm; Wt 119.8 kg
[2022-11-24] VITALS (12 sets, daily range): BP systolic 80–149; BP diastolic 44–93
[~2022-11-24 06:08] MED LIST changes: -APIX2.5T PO; -HYDR-34 PO
[2022-11-24] MEDS ORDERED: LACTATED RINGERS 1,000 ML 1,000 ML IV PRN (06:15)
[2022-11-24] MEDS ORDERED: ceFAZolin INJECTION 2,000 MG in NS (IVPB) 50 ML 50 ML IV ONE (06:15)
[2022-11-24] MEDS ORDERED: BUPIVACAINE 0.5% 30 ML VIAL ONE (07:02)
[2022-11-24] MEDS ORDERED: MIDAZOLAM INJ 2 MG/2 ML VIAL ONE ×2 (07:03→08:03)
--- NOTE | 2022-11-24 07:12 | Progress Note-Pre Operative ---
Pre-Operative Progress Note Date of Available H&P: Nov 04, 2022 Date H&P Reviewed: Nov 24, 2022 Time H&P Reviewed: 07:05 History & Physical: H&P Reviewed, Patient Examed, No changes noted Pre-Operative Diagnosis: Left Knee Primary Osteoarthritis PRATIK BARON MD Nov 24, 2022 07:12
[2022-11-24] MEDS ORDERED: TRANEXAMIC ACID 100 MG/ML 10 ML INJECTION ONE (09:13)
--- NOTE | 2022-11-24 09:48 | Operative Report - Ortho ---
Operative Report Surgeon (s)/Miscellaneous Machine Operator (s) Surgeon PRATIK BARON MD Miscellaneous Machine Operator n/a Pre-Operative Diagnosis Left Knee Primary Osteoarthritis Post-Operative Diagnosis same Operative Report Date of Procedure: Nov 24, 2022 Name of Procedure Performed: Left Total Knee Arthroplasty Description & Findings After obtaining informed consent and marking the patient in the preoperative holding area, the patient did receive IV antibiotics. Patient was taken to the operating room and anesthesia was induced. Surgical timeout was taken. The left lower extremity was prepped and draped in the usual sterile fashion. Incision was made and carried down to fascia. Arthrotomy was performed on the medial side of the patella. Patella was retracted laterally and knee was flexed. Found to have circumferential osteophtye around the distal femur as well as exposed bone in the medial compartment. Hole was made in the distal femur for the intramedullary distal femoral cutting guide. Resection was made then the femur was sized as a 5. 4-in-1 block for a size [address]. Anterior cut was made and there was no notch. Posterior cut was made followed by the chamfers. Box cut was performed. Lug holes were drilled. Attention was turned to the tibial side, extramedullary tibial guide was put into place and aligned with the tibial crest. It was set to take 2 mm off of the affected medial side. Drop michelle was used to confirm alignment. Resection was made and was parallel to the joint line. Tibial bone block was removed. Lamina piping engineer was put into place and the menisci and posterior osteophytes were removed. The knee was trialed with a size 5 femur and a size 5 tibia with an 11 mm poly trial. It was found to come out to full extension and flexed beyond 120 degrees. It was stable to varus and valgus stress throughout its range of motion. This was accepted. Knee was brought out into extension and the patella was prepared for an inset patellar button. Trial patella was placed and tracked well. Trial implants were removed. Tibial tray was pinned and punched. Tibial press fit guide was placed and holes were drilled. The cut bone surfaces were lavaged with pulsatile normal saline. Implants were opened and assembled on the back table. A size 5 press fit tibial component was impacted into place. A size 5 press fit femoral component was impacted into place. Tibial tray was lavaged with saline. An 11 mm thick polyethylene component was locked into placed and the locking mechanism was checked. Knee was brought into extension. Press fit patellar component was placed and clamped to the correct pressure. Irrisept soak was performed and then, the knee was irrigated with normal saline. The knee was once again trialed; found to come to full extension, flexed beyond 120 degrees, and was stable to varus and valgus stress. Tourniquet was dropped and electrocautery was used for hemostasis. Fascial layer was closed with #2 Stratafix. The subcutaneous layer was closed with 2-0 Vicryl. The skin was closed with a running subcuticular 3-0 V-loc. Wound was dressed with steri- strips, xeroform, 4x4s, ABD, webril, and VIDYA wrap. Patient tolerated the procedure well and was stable to the recovery room. Anesthesia Type Spinal Estimated Blood Loss 150 ml Specimen(s) collected/removed None PRATIK BARON MD Nov 24, 2022 09:48
[2022-11-24] MEDS ORDERED: HYDROmorphone INJECTION 2 MG/ML VIAL IV ONE (10:00)
[2022-11-24] MEDS ORDERED: morphine INJ 10 MG/ML 1ML (SYR OR VIAL) IVP ONE (10:00)
[2022-11-24] MEDS ORDERED: ACETAMINOPHEN 500 MG TABLET PO PRN (10:00)
[2022-11-24] MEDS ORDERED: ONDANSETRON INJECTION 4 MG/2 ML (SDV) IV PRN (10:00)
[2022-11-24] MEDS ORDERED: BISACODYL 5 MG TABLET PO PRN (10:00)
[2022-11-24] MEDS ORDERED: ONDANSETRON INJECTION 4 MG/2 ML (SDV) IVP PRN (10:00)
[2022-11-24] MEDS ORDERED: MILK OF MAGNESIA 400 MG/5 ML 30 ML UDC PO PRN (10:00)
[2022-11-24] MEDS ORDERED: morphine INJ 10 MG/ML 1ML (SYR OR VIAL) ONE (10:18)
--- NOTE | 2022-11-24 10:39 | Diagnostic Imaging Report ---
CLINICAL INDICATION: Patient is postop left knee arthroplasty. EXAM: X-ray of the left knee, 2 views. COMPARISON: X-ray of the left knee dated 07/29/2022. FINDINGS: There are interval postop changes with placement of left total knee arthroplasty components in good position. There is air involving the anterior knee soft tissues and joint space. A compression device is seen overlying the knee region. IMPRESSION: There are interval postop changes with left total knee arthroplasty components in good position. There is no unexpected radiodense foreign object. Dictated by: Dictated on workstation # [id number]
[2022-11-24] MEDS: NS IV 1000 ML 1,000 ML IV SCH ×2 (11:00→20:50)
[2022-11-24] MEDS: oxyCODONE IMMEDIATE RELEASE 5 MG TABLET PO PRN ×3 (12:38→20:49)
[2022-11-24] MEDS: morphine INJ 4 MG/ML 1 ML (VIAL/SYRINGE) IVP PRN ×3 (13:33→21:01)
--- NOTE | 2022-11-24 14:17 | Physical Therapy Evaluation ---
PT Evaluation-General Medical Diagnosis Admission Date November 24, 2022 Medical Diagnosis: left knee OA Onset Date: Nov 24, 2022 Therapy Diagnosis Therapy Diagnosis: debility/weakness Precautions Precautions/Isolations: Standard Precautions Weight Bear Status Right Lower Extremity: Right Full Weight Bearing Left Lower Extremity: Left Weight Bearing/Tolerated Referral Physician: Fabricio Reason for Referral: Evaluation/Treatment Medical History Additional Medical History myasthenia gravis Current History s/p elective left TKR Reviewed History: Yes Social History Home: Single Level Current Living Status: Alone Entry Into Home: Stairs With Railing Prior Prior Level of Function SCALE: Activities may be completed with or without assistive devices. 5-Eahynidqyb-dzmgkbe completes the activity by him/herself with no assistance from a helper. 5-Set-up or Clean-up Assistance-helper sets up or cleans up; patient completes activity. [place] assists only prior to or following the activity. 4-Supervision or Touching Assistance-helper provides verbal cues and/or touc tim/steadying and/or contact guard assistance as patient completes activity. Assistance may be provided throughout the activity or intermittently. 3-Partial/Moderate Assistance-helper does LESS THAN HALF the effort. [place] lifts, holds or supports trunk or limbs, but provides less than half the effort. 2-Substantial/Maximal Assistance-helper does MORE THAN HALF the effort. [place] lifts or holds trunk or limbs and provides more than half the effort. 2-Hauhpjxam-eilxed does ALL the effort. Patient does none of the effort to complete the activity. Or, the assistance of 2 or more helpers is required for the patient to complete the activity. If activity was not attempted, code reason: 7-Patient Refused. 9-Not Applicable-not attempted and the patient did not perform the activity before the current illness, exacerbation or injury. 10-Not Attempted due to Environmental Limitations-(lack of equipment, weather restraints, etc.). 88-Not Attempted due to Medical Conditions or Safety Concerns. Bed Mobility: 6 Transfers (B,C,W/C): 6 Gait: 6 Stairs: 6 Indoor Mobility (Ambulation): Independent Stairs: Independent Prior Devices Use: Walker, Other-see list below Prior Device Use: cane PT Evaluation-Current Subjective Patient agrees to PT. Objective Patient Orientation: Normal For Age Attachments: Hickey Catheter ROM/Strength ROM Lower Extremities bilateral LE WFL Strength Lower Extremities right LE 4/5 grossly/left LE 3/5 grossly Integumentary/Posture Bladder Incontinence: Hickey Cath Posture WFL Neuromuscular (Tone, Coordination, Reflexes) grossly intact Sensory Vision: Functional Hearing: Functional Transfers Lying to Sitting/Side of Bed(Q: 3 Sit to Stand (QC): 4 Chair/Wrh-hn-Mtjkk Xfer(QC): 4 Gait Mode of Locomotion: Walk Anticipated Mode of Locomotion: Walk Walk 10 feet (QC): 4 Walk 50 ft with 2 Turns(QC): 4 Distance: 75' Gait Assistive Device: FWW Comments/Gait Description slow, antalgic gait Balance Sitting Static: Normal Sitting Dynamic: Normal Standing Static: Fair Standing Dynamic: Fair Assessment/Needs Patient will benefit from skilled PT to address functional strength and mobility to improve current LOF to safely return to home at maximum LOF. Rehab Potential: Fair PT Journeyman Welder Goals Journeyman Welder Goals PT Journeyman Welder Goals Time Frame: Nov 29, 2022 Roll Left & Right (QC): 6 Sit to Lying (QC): 6 Lying-Sitting on Side/Bed(QC): 6 Sit to Stand (QC): 6 Chair/Hqc-ci-Oohcj Xfer(QC): 6 Toilet Transfer (QC): 6 Walk 10 feet (QC): 6 Walk 50ft with 2 Turns (QC): 6 Walk 150 ft (QC): 6 1 Step (curb) (QC): 4 4 Steps (QC): 4 PT Plan Problem List Problem List: Activity Tolerance, Functional Strength, Safety, Balance, Gait, Transfer, Bed Mobility Treatment/Plan Treatment Plan: Continue Plan of Care Treatment Plan: Bed Mobility, Education, Functional Activity Constanza, Functional Strength, Gait, Safety, Therapeutic Exercise, Transfers Treatment Duration: Nov 29, 2022 Frequency: 11 times per week Estimated Hrs Per Day: .5 hour per day Time Time In: 1350 Time Out: 1404 DATE: Nov 24, 2022 Total Billed Treatment Time: 14 Total Billed Treatment 1 visit [facility] 14 min SATHYA MERINO PT Nov 24, 2022 14:17
[2022-11-24] MEDS ORDERED: ceFAZolin INJECTION 2,000 MG in NS (IVPB) 50 ML 50 ML IV SCH (16:00)
[2022-11-24] MEDS: ceFAZolin INJECTION 2,000 MG in NS (IVPB) 50 ML 50 ML IV SCH ×2 (16:17→23:54)
--- NOTE | 2022-11-24 19:44 | Consultation ---
History of Present Illness History of Present Illness Patient Consulted On(beverly/time) 11/24/22 19:39 Date Seen by Provider: Nov 24, 2022 Time Seen by Provider: 12:05 Reason for Visit: Left knee replacement History of Present Illness 52-year-old male who is well known to me from my practice presents this morning under the care of orthopedics for total knee replacement on the left. He has been walking with a cane and experiencing quite a bit of pain. He underwent left knee replacement this morning and currently he is on [facility] for post surgical care. He does have a history of hypertension as well as myasthenia gravis. The myasthenia gravis was diagnosed in 2018 and he is currently not on any medications for the condition. He does take lisinopril and amlodipine. Allergies and Home Medications Allergies Coded Allergies: No Allergy Information Available (Unverified , 11/17/22) Patient Home Medication List Home Medication List Reviewed: Yes Amlodipine Besylate (Amlodipine Besylate) 5 Mg Tablet, 5 MG PO DAILY, (Reported) Entered as Reported by: Agnes Webber on 11/17/22 1002 Last Action: Continued Lisinopril (Lisinopril) 40 Mg Tablet, 40 MG PO DAILY, (Reported) Entered as Reported by: Agnes Webber on 11/17/22 1002 Last Action: Continued Discontinued Medications Apixaban (Eliquis) 5 Mg Tablet, 5 MG PO BID Discontinued Reason: No Longer Taking Prescribed by: JESENIA OAKLEY on 09/07/19 0720 Cholecalciferol (Vitamin D3) (Vitamin D3) 125 Mcg Tablet, 125 MCG PO DAILY, (Reported) Discontinued Reason: No Longer Taking Entered as Reported by: CHRISTIE GALVAN on 09/06/19 1427 Lisinopril (Lisinopril) 10 Mg Tablet, Unknown Dose PO DAILY, (Reported) Discontinued Reason: New Order Entered as Reported by: CHRISTIE GALVAN on 09/06/19 1518 Prednisone (Prednisone) 5 Mg Tablet, 5 MG PO DAILY, (Reported) Discontinued Reason: No Longer Taking Entered as Reported by: STEPH WILSON on 09/05/198 Pyridostigmine Widener (Pyridostigmine Widener) 60 Mg Tablet, 60 MG PO QID, (Reported) Discontinued Reason: Referral/FU Appt-Addtl Entered as Reported by: STEPH WILSON on 09/05/191957 Tacrolimus (Tacrolimus) 1 Mg Capsule, 1 MG PO BID, (Reported) Discontinued Reason: No Longer Taking Entered as Reported by: STEPH WILSON on 09/05/191957 Tacrolimus (Tacrolimus) 0.5 Mg Capsule, 0.5 MG PO BID, (Reported) Discontinued Reason: No Longer Taking Entered as Reported by: STEPH WILSON on 09/05/191957 Past Ivcjngc-Topubj-Qfeazc Hx Patient Social History Tobacco Use?: No Smoking Status: Former Smoker Smokeless Tobacco Frequency: Former User Use of E-Cig and/or Vaping dev: No E-Cig or Vaping type used: Marijuana Substance use?: Yes Substance type: Marijuana Substance frequency: Daily Alcohol Use?: Yes Alcohol type: Beer, Hard Liquor Alcohol Frequency: Couple times a week Pt feels they are or have been: No Immunizations Up To Date Influenza Vaccine Up-to-Date: No; Not Current Seasonal Allergies Seasonal Allergies: Yes Past Medical History Surgery/Hospitalization HX: THYMUS GLAND REMOVAL ROTATOR CUFF SX SCOPE RIGHT AND LEFT KNEE MULTIPLE DVTs Surgeries: Yes (L ELBOW;R ROTATOR CUFF X2;BILAT KNEE SCOPES;R ANIKLE FX/ORIF;THYMUS REMOVED) Orthopedic Respiratory: Yes (PNEUMONIA SEVERAL TIMES) Pneumonia, Pulmonary Embolism Currently Using CPAP: No Currently Using BIPAP: No Cardiac: Yes Deep Vein Thrombosis, Hypertension Neurological: Yes (MYASTHENIA GRAVIS) Sexually Transmitted Disease: No Genitourinary: No Gastrointestinal: Yes Chronic Diarrhea Musculoskeletal: Yes (MULTIPLE ORTHO SURGERIES) Fractures Endocrine: No (THYMECTOMY) HEENT: Yes (VISION COMES AND GOES R/T MYASTHENIA GRAVIS) Dysphagia Cancer: No Psychosocial: No Integumentary: No Blood Disorders: No Adverse Reaction/Blood Tranf: No Family Medical History Patient reports no known family medical history. Review of Systems-General Constitutional: see HPI Physical Exam-General Problems Physical Exam Vital Signs Vital Signs - First Documented 11/24/22 06:05 Temp 36.8 Pulse 68 Resp 20 B/P (MAP) 133/93 (106) Pulse Ox 96 O2 Delivery Room Air Capillary Refill : General Appearance: no apparent distress HEENT: pharynx normal Neck: full range of motion Respiratory: lungs clear, normal breath sounds Cardiovascular: regular rate, rhythm Gastrointestinal: soft Rectal: deferred Extremities: normal capillary refill; No pedal edema, No swelling; other (Wrap to the left knee noted) Neurologic/Psychiatric: land surveyor assistant II-XII nml as tested, no motor/sensory deficits, oriented x 3 Assessment/Plan Assessment/Plan Admission Diagnosis/Plan 1. Severe osteoarthritis left knee with significant pain now he is status post left knee replacement -patient is under the care of Dr. Regalado -apixaban 2.5 mg by mouth twice a day initiated by orthopedics -physical therapy -Patient will probably need inpatient rehabilitation as well 2. Myasthenia gravis since 2019 -He is awaiting appointment at [facility]. 3. Hypertension first diagnosed 2017 -Lisinopril 20 mg and amlodipine 5 mg have already been initiated daily. -Will follow along with you Admission Status: Inpatient Order (span 2 midnights) Reason for Inpatient Admission: Left total knee replacement JESENIA OAKLEY MD Nov 24, 2022 19:44
[2022-11-24] MEDS: DOCUSATE SODIUM 100 MG CAPSULE PO SCH (20:49)
[2022-11-25] MEDS: morphine INJ 4 MG/ML 1 ML (VIAL/SYRINGE) IVP PRN ×6 (00:34→17:12)
[2022-11-25] MEDS: oxyCODONE IMMEDIATE RELEASE 5 MG TABLET PO PRN ×3 (01:48→09:56)
[2022-11-25 04:26] VITALS: BP 150/86
[2022-11-25] MEDS: NS IV 1000 ML 1,000 ML IV SCH (05:00)
[2022-11-25 05:28] LABS: HEMOGLOBIN 13.6 g/dL (13.3-17.7)
[2022-11-25] MEDS: THERAPEUTIC MULTIVITAMIN W/MINERALS TABLET PO SCH (06:25)
[2022-11-25 07:08] VITALS: BP 155/85
--- NOTE | 2022-11-25 07:49 | Progress Note ---
Subjective Date Seen by a Provider: Nov 25, 2022 Time Seen by a Provider: 06:55 Subjective/Events-last exam patient was sitting at bedside this morning. He was reporting quite a bit of discomfort to his left knee region. He is status post 1 day from having left knee replaced. He denies any chest pain or shortness of breath. He has no calf tenderness Objective Exam Vital Signs Date Time Temp Pulse Resp B/P (MAP) Pulse Ox O2 Delivery O2 Flow Rate FiO2 11/25/22 07:08 37.0 106 18 155/85 (108) 98 Room Air 11/25/22 04:26 37.5 89 20 150/86 (107) 95 Room Air 11/24/22 23:54 37.8 95 20 149/90 (109) 94 Room Air 11/24/22 21:27 Room Air 11/24/22 19:13 36.1 96 20 138/89 (105) 100 Room Air 11/24/22 15:32 36.2 85 19 135/83 (100) 96 Room Air 11/24/22 12:33 35.5 67 18 138/78 (98) 99 Room Air 11/24/22 11:56 Room Air 11/24/22 11:13 Room Air 11/24/22 10:55 Room Air 11/24/22 10:50 36.1 14 104/70 (81) 96 Room Air 11/24/22 10:40 Room Air 11/24/22 10:40 17 100/71 (81) 94 Room Air 11/24/22 10:30 14 94/64 (74) 93 Room Air 11/24/22 10:20 OxyMask 2.00 11/24/22 10:20 16 92/64 (73) 95 Room Air 11/24/22 10:10 16 86/46 (59) 95 OxyMask 2.00 11/24/22 10:05 OxyMask 4.00 11/24/22 10:00 16 80/44 (56) 96 OxyMask 4.00 11/24/22 09:50 OxyMask 6.00 11/24/22 09:50 36.3 16 82/54 (63) 94 OxyMask 6.00 I & O 11/25/22 07:00 Intake Total 3370 ml Output Total 1700 ml Balance 1670 ml Capillary Refill : General Appearance: No Apparent Distress Respiratory: Lungs Clear Cardiovascular: Regular Rate, Rhythm Extremity: Other ([place] wrap noted around left lower extremity) Results Lab Laboratory Tests 11/25/22 05:20: Hemoglobin 13.6, Hematocrit 39L Microbiology 11/17/22 MRSA Screen - Final, Complete MRSA not isolated Assessment/Plan Assessment/Plan Assess & Plan/Chief Complaint 1. Severe osteoarthritis left knee with significant pain now he is status post left knee replacement -patient is under the care of Dr. Regalado -apixaban 2.5 mg by mouth twice a day initiated by orthopedics -physical therapy -Patient will probably need inpatient rehabilitation as well 2. Myasthenia gravis since 2018 -He is awaiting appointment at [facility]. 11-25 -patient has appointment January 14 at 3. Hypertension first diagnosed 2017 -Lisinopril 20 mg and amlodipine 5 mg have already been initiated daily. -Will follow along with you 11-25 -blood pressure he is up a little bit this morning. He has not had his blood pressure medications today however. Will continue to monitor JESENIA OAKLEY MD Nov 25, 2022 07:49
--- NOTE | 2022-11-25 08:10 | Physical Therapy Daily Note ---
PT Daily Note-Current Subjective Patient agrees to therapy. Pain Numeric Pain Scale: 10-Worst Possible Pain Location: Left Location Body Site: Knee Pain Description: Acute Section J - Health Conditions 1. Rarely or not at all 2. Occasionally 3. Frequently 4. Almost constantly 8. Unable to answer Pain Effect on Sleep: 4 Pain Interference with Therapy: 4 Pain Interference w/Day-to-Day: 4 Transfers SCALE: Activities may be completed with or without assistive devices. 4-Hcpmiarcdg-ohwkaeq completes the activity by him/herself with no assistance from a helper. 5-Set-up or Clean-up Assistance-helper sets up or cleans up; patient completes activity. [place] assists only prior to or following the activity. 4-Supervision or Touching Assistance-helper provides verbal cues and/or touching/steadying and/or contact guard assistance as patient completes activity. Assistance may be provided throughout the activity or intermittently. 3-Partial/Moderate Assistance-helper does LESS THAN HALF the effort. [place] lift s, holds or supports trunk or limbs, but provides less than half the effort. 2-Substantial/Maximal Assistance-helper does MORE THAN HALF the effort. [place] lifts or holds trunk or limbs and provides more than half the effort. 4-Reszpedaw-zykbhn does ALL the effort. Patient does none of the effort to complete the activity. Or, the assistance of 2 or more helpers is required for the patient to complete the activity. If activity was not attempted, code reason: 7-Patient Refused. 9-Not Applicable-not attempted and the patient did not perform the activity before the current illness, exacerbation or injury. 10-Not Attempted due to Environmental Limitations-(lack of equipment, weather restraints, etc.). 88-Not Attempted due to Medical Conditions or Safety Concerns. Sit to Stand (QC): 4 Weight Bearing Right Lower Extremity: Right Full Weight Bearing Left Lower Extremity: Left Weight Bearing/Tolerated Gait Training Distance: 150' Walk 10 feet (QC): 4 Walk 50 ft with 2 Turns(QC): 4 Walk 150 ft (QC): 4 Gait Assistive Device: FWW slow, step to pattern/antalgic Exercises Seated Therapy Exercises: Ankle pumps, Long arc quads Seated Reps: 15 (x 2 sets AAROM LAQ) Assessment Patient continues to have difficulty with activating left quad musculature with LAQ. Patient able to ambulate in hallway with VC's for gait sequence. Patient voices desire to transfer to ARU secondary to living by himself and reports inability to care for self currently. PT Mechanical Project Engineer Goals Mechanical Project Engineer Goals PT Mechanical Project Engineer Goals Time Frame: Nov 29, 2022 Roll Left & Right (QC): 6 Sit to Lying (QC): 6 Lying-Sitting on Side/Bed(QC): 6 Sit to Stand (QC): 6 Chair/Eql-wz-Tibic Xfer(QC): 6 Toilet Transfer (QC): 6 Walk 10 feet (QC): 6 Walk 50ft with 2 Turns (QC): 6 Walk 150 ft (QC): 6 1 Step (curb) (QC): 4 4 Steps (QC): 4 PT Plan Treatment/Plan Treatment Plan: Continue Plan of Care Treatment Plan: Bed Mobility, Education, Functional Activity Constanza, Functional Strength, Gait, Safety, Therapeutic Exercise, Transfers Treatment Duration: Nov 29, 2022 Frequency: 11 times per week Estimated Hrs Per Day: .5 hour per day Time Time In: 726 Time Out: 750 DATE: Nov 25, 2022 Total Billed Treatment Time: 24 Total Billed Treatment 1 visit EX 11 min GT 13 min SATHYA MERINO PT Nov 25, 2022 08:10
[2022-11-25] MEDS: APIXABAN 2.5 MG TABLET PO SCH ×2 (08:11→19:27)
[2022-11-25] MEDS: DOCUSATE SODIUM 100 MG CAPSULE PO SCH ×2 (08:12→19:27)
[2022-11-25] MEDS: amLODIPine 5 MG TABLET PO SCH (08:12)
[2022-11-25 11:20] VITALS: BP 147/83
--- NOTE | 2022-11-25 11:22 | Progress Note - Ortho ---
Progress Note Subjective Date of Exam 11/25/22 Chief Complaint POD #1 L TKA HPI/Events since last exam having some difficulty with pain, has been up with therapy Review of Systems - Allergies: Coded Allergies: No Allergy Information Available (Unverified , 11/17/22) Home Meds Reported Medications Lisinopril (Lisinopril) 40 Mg Tablet, 40 MG PO DAILY, TAB 11/17/22 Amlodipine Besylate (Amlodipine Besylate) 5 Mg Tablet, 5 MG PO DAILY, TAB 11/17/22 Objective Exam L Knee: Incision C/D/I, +DF of ankle, no s/s of DVT Vital Signs Vital Signs Date Time Temp Pulse Resp B/P (MAP) Pulse Ox O2 Delivery O2 Flow Rate FiO2 11/25/22 09:00 Room Air 11/25/22 07:08 37.0 106 18 155/85 (108) 98 Room Air 11/25/22 04:26 37.5 89 20 150/86 (107) 95 Room Air 11/24/22 23:54 37.8 95 20 149/90 (109) 94 Room Air 11/24/22 21:27 Room Air 11/24/22 19:13 36.1 96 20 138/89 (105) 100 Room Air 11/24/22 15:32 36.2 85 19 135/83 (100) 96 Room Air 11/24/22 12:33 35.5 67 18 138/78 (98) 99 Room Air 11/24/22 11:56 Room Air I & O 11/25/22 07:00 Intake Total 3370 ml Output Total 1700 ml Balance 1670 ml Lab Results Laboratory Tests 11/25/22 05:20: Hemoglobin 13.6, Hematocrit 39L Microbiology 11/17/22 MRSA Screen - Final, Complete MRSA not isolated Imaging 2 postop views of the left knee dated 11/24/22 were reviewed from PACS and demonstrated total knee arthroplasty without complication Assessment and Plan Assessment Left Knee Primary OA s/p TKA Problem List Left Knee Primary OA s/p TKA Plan PT/OT DVT Prophylaxis Rehab vs home with home health Final Diagonsis Left Knee Primary OA s/p TKA Level of the visit: Level 3 (global) PRATIK BARON MD Nov 25, 2022 11:22
[2022-11-25] MEDS: HYDROcodone/ACETAMINOPHEN 7.5 MG/325 MG TABLET PO PRN ×3 (12:43→21:21)
--- NOTE | 2022-11-25 13:17 | Anesthesia-Regional Post-Op ---
Regional Patient Condition Mental Status: Alert, Oriented x3 Circulation: Same as Pre-Op Headache: Absent Sensation: Full Recovery Motor Block: Absent Post Op Complications Complications None Follow Up Care/Instructions Patient Instructions None needed. Anesthesia/Patient Condition Patient is doing well, no complaints, stable vital signs, no apparent adverse anesthesia problems. No complications reported per nursing. SIRENA BARTON CRNA Nov 25, 2022 13:17
--- NOTE | 2022-11-25 14:10 | Physical Therapy Daily Note ---
PT Daily Note-Current Subjective Patient continues to c/o 12/02 left knee patient with meds issued. Pain Numeric Pain Scale: 10-Worst Possible Pain Location: Left Location Body Site: Knee Pain Description: Acute Section J - Health Conditions 1. Rarely or not at all 2. Occasionally 3. Frequently 4. Almost constantly 8. Unable to answer Pain Effect on Sleep: 4 Pain Interference with Therapy: 4 Pain Interference w/Day-to-Day: 4 Transfers SCALE: Activities may be completed with or without assistive devices. 7-Vagqkurkmk-ximqigg completes the activity by him/herself with no assistance from a helper. 5-Set-up or Clean-up Assistance-helper sets up or cleans up; patient completes activity. [place] assists only prior to or following the activity. 4-Supervision or Touching Assistance-helper provides verbal cues and/or touching/steadying and/or contact guard assistance as patient completes activity. Assistance may be provided throughout the activity or intermittently. 3-Partial/Moderate Assistance-helper does LESS THAN HALF the effort. [place] lifts, holds or supports trunk or limbs, but provides less than half the effort. 2-Substantial/Maximal Assistance-helper does MORE THAN HALF the effort. [place] lifts or holds trunk or limbs and provides more than half the effort. 5-Pjlbcrigc-tzncby does ALL the effort. Patient does none of the effort to complete the activity. Or, the assistance of 2 or more helpers is required for the patient to complete the activity. If activity was not attempted, code reason: 7-Patient Refused. 9-Not Applicable-not attempted and the patient did not perform the activity before the current illness, exacerbation or injury. 10-Not Attempted due to Environmental Limitations-(lack of equipment, weather restraints, etc.). 88-Not Attempted due to Medical Conditions or Safety Concerns. Sit to Lying (QC): 6 Lying to Sitting/Side of Bed(Q: 6 Sit to Stand (QC): 6 with supine<>sit patient hooks right LE under left to lift and assist Weight Bearing Right Lower Extremity: Right Full Weight Bearing Left Lower Extremity: Left Weight Bearing/Tolerated Gait Training Distance: 180' Walk 10 feet (QC): 5 Walk 50 ft with 2 Turns(QC): 5 Walk 150 ft (QC): 5 Gait Assistive Device: FWW slow, antalgic gait Exercises Supine Ex: Ankle pumps, Quad Set, Heel Slides, Straight leg raise Supine Reps: 15 (AAROM with patient resisting knee flexion) Seated Therapy Exercises: Long arc quads Seated Reps: 15 (AAROM left LE) Assessment Patient continues to have difficulty with activating left quad to perform SLR and LAQ. Patient very resistive with left knee flexion due to uncontrolled pain. PT to increase activity as tolerated by patient. PT Halfway Goals Halfway Goals PT Halfway Goals Time Frame: Nov 29, 2022 Roll Left & Right (QC): 6 Sit to Lying (QC): 6 Lying-Sitting on Side/Bed(QC): 6 Sit to Stand (QC): 6 Chair/Ecs-tv-Kmoik Xfer(QC): 6 Toilet Transfer (QC): 6 Walk 10 feet (QC): 6 Walk 50ft with 2 Turns (QC): 6 Walk 150 ft (QC): 6 1 Step (curb) (QC): 4 4 Steps (QC): 4 PT Plan Treatment/Plan Treatment Plan: Continue Plan of Care Treatment Plan: Bed Mobility, Education, Functional Activity Constanza, Functional Strength, Gait, Safety, Therapeutic Exercise, Transfers Treatment Duration: Nov 29, 2022 Frequency: 11 times per week Estimated Hrs Per Day: .5 hour per day Time Time In: 1300 Time Out: 1324 DATE: Nov 25, 2022 Total Billed Treatment Time: 24 Total Billed Treatment 1 visit EX 13 min GT 11 min SATHYA MERINO PT Nov 25, 2022 14:10
--- NOTE | 2022-11-25 15:40 | Occupational Therapy Eval ---
OT Evaluation-General/PLF Medical Diagnosis Admission Date Medical Diagnosis: left knee OA Onset Date: Nov 24, 2022 Therapy Diagnosis Therapy Diagnosis: weakness, pain Precautions Precautions/Isolations: Fall Prevention, Standard Precautions Weight Bear Status Weight Bearing Restriction: Weight Bearing/Tolerated Location Restriction: L LE Referral Physician: Fabricio Referral Reason: Self Care, Evaluation/Treatment Medical History Reviewed History: Yes Social History Home: Single Level Current Living Status: Alone Entry Into Home: Stairs With Railing ADL-Prior Level of Function SCALE: Activities may be completed with or without assistive devices. 3-Cyqtwbfuvj-cokpisc completes the activity by him/herself with no assistance from a helper. 5-Set-up or Clean-up Assistance-helper sets up or cleans up; patient completes activity. [place] assists only prior to or following the activity. 4-Supervision or Touching Assistance-helper provides verbal cues and/or touching/steadying and/or contact guard assistance as patient completes activity. Assistance may be provided throughout the activity or intermittently. 3-Partial/Moderate Assistance-helper does LESS THAN HALF the effort. [place] lifts, holds or supports trunk or limbs, but provides less than half the effort. 2-Substantial/Maximal Assistance-helper does MORE THAN HALF the effort. [place] lifts or holds trunk or limbs and provides more than half the effort. 8-Dmwbxysnh-uahgui does ALL the effort. Patient does none of the effort to complete the activity. Or, the assistance of 2 or more helpers is required for the patient to complete the activity. If activity was not attempted, code reason: 7-Patient Refused. 9-Not Applicable-not attempted and the patient did not perform the activity before the current illness, exacerbation or injury. 10-Not Attempted due to Environmental Limitations-(lack of equipment, weather restraints, etc.). 88-Not Attempted due to Medical Conditions or Safety Concerns. Self Care: Independent Functional Cognition: Independent Drive Self: Yes OT Current Status Subjective LLE prop on chair in extension, OT instructed in looping RLE under left ankle to lower to floor while OT moves chair Pain Numeric Pain Scale: 10-Worst Possible Pain Location: Left Location Body Site: Knee Mental Status/Objective Patient Orientation: Person, Place, Time, Situation Current Glasses/Contacts: No Hearing Aids: No Dentures/Partials: No Upper Extremity ROM BU ROM WFLS Upper Extremity Coordination INTACT Upper Extremity Sensation INTACT Upper Extremity Strength -4/5 ADL-Treatment Eating (QC): 6 Oral Hygiene (QC): 5 (SET UP ON BED TRAY) Shower/Bathe Self (QC): 88 Upper Body Dressing (QC): 5 (HANDED TO PATIENT) Lower Body Dressing (QC): 3 (INCLUDING EXTRAT TIEM, TOOLS AND 50% PHYSICAL ASSISTANCE) On/Off Footwear (QC): 4 (W/ TOOLS) Toileting Hygiene (QC): 7 PATIENT REPORTS EXTREME PAIN W/ ROM AND MUCH FATIGUE Education OT Patient Education: Correct positioning, Modified ADL techniques, Progress toward Goal/Update tx plan, Purpose of tx/functional activities, Reviewed precautions, Rehab process, Safety issues, Transfer techniques, Use of adapted equipment Teaching Recipient: Patient Teaching Methods: Demonstration, Discussion Response to Teaching: Reinforcement Needed OT Care Home Goals Care Home Goals Time Frame: Nov 28, 2022 Eating (QC): 6 Oral Hygiene (QC): 6 Toileting Hygiene (QC): 6 Shower/Bathe Self (QC): 5 Upper Body Dressing (QC): 6 Lower Body Dressing (QC): 6 (W/ TOOLS) On/Off Footwear (QC): 6 (W/ TOOLS) 1=Demonstrate adherence to instructed precautions during ADL tasks. 2=Patient will verbalize/demonstrate understanding of assistive devices/modifications for ADL. 3=Patient will improve strength/tolerance for activity to enable patient to perform ADL's. OT Education/Plan Problem List/Assessment Assessment: Decreased Activ Tolerance, Impaired Funct Balance, Impaired Self- Care Skills Discharge Recommendations Plan/Recommendations: Continue POC Therapy Discharge Recommendati: Post Acute OT Treatment Plan/Plan of Care Treatment,Training & Education: Yes Patient would benefit from OT for education, treatment and training to promote independence in ADL's, mobility, safety and/or upper extremity function for ADL's. Plan of Care: ADL Retraining, Functional Mobility, Group Exercise/Act as Ind, UE Funct Exercise/Act Treatment Duration: Nov 28, 2022 Frequency: 3 times per week (3-5 TIMES PER WEEK) Estimated Hrs Per Day: .25 hour per day Agreement: Yes Rehab Potential: Guarded UP IN RECLINER LEGS DOWN Time Start Time: 10:34 (1059) Stop Time: 10:59 DATE: Nov 25, 2022 Total Time Billed (hr/min): 25 Billed Treatment Time EVM, ADL 25 MIN NIMA MG OT Nov 25, 2022 15:40
[2022-11-25 15:55] VITALS: BP 148/93
[2022-11-25 19:42] VITALS: BP 136/80
[2022-11-25 23:35] VITALS: BP 128/77
[2022-11-26] MEDS: HYDROcodone/ACETAMINOPHEN 7.5 MG/325 MG TABLET PO PRN ×3 (03:01→12:05)
[2022-11-26 03:30] VITALS: BP 128/79
[2022-11-26] MEDS: THERAPEUTIC MULTIVITAMIN W/MINERALS TABLET PO SCH (05:13)
[2022-11-26 05:36] LABS: HEMOGLOBIN 13.4 g/dL (13.3-17.7)
[2022-11-26 07:10] VITALS: BP 127/83
[2022-11-26] MEDS: amLODIPine 5 MG TABLET PO SCH (07:58)
[2022-11-26] MEDS: APIXABAN 2.5 MG TABLET PO SCH (07:58)
[2022-11-26] MEDS: DOCUSATE SODIUM 100 MG CAPSULE PO SCH (07:58)
--- NOTE | 2022-11-26 07:58 | Progress Note ---
Subjective Date Seen by a Provider: Nov 26, 2022 Time Seen by a Provider: 07:05 Subjective/Events-last exam patient is feeling much better today compared to yesterday. He reports the left knee is doing better with regard to the pain and swelling has gone down a little bit. He denies any issues with his hypertension such as headache or visual disturbances. Objective Exam Vital Signs Date Time Temp Pulse Resp B/P (MAP) Pulse Ox O2 Delivery O2 Flow Rate FiO2 11/26/22 07:10 36.9 86 17 127/83 (98) 98 Room Air 11/26/22 03:30 37.0 96 18 128/79 (95) 99 Room Air 11/25/22 23:35 37.0 98 18 128/77 (94) 97 Room Air 11/25/22 19:42 37.1 97 18 136/80 (98) 94 Room Air 11/25/22 19:31 Room Air 11/25/22 15:55 37.1 96 20 148/93 (111) 97 Room Air 11/25/22 11:20 36.8 99 18 147/83 (104) 96 Room Air 11/25/22 09:00 Room Air I & O 11/26/22 07:00 Intake Total 2900 ml Output Total 3850 ml Balance -950 ml Capillary Refill : General Appearance: No Apparent Distress Respiratory: Lungs Clear Cardiovascular: Regular Rate, Rhythm Extremity: Other (Noted swelling surrounding the left knee but dressing in place. No significant erythema or heat) Results Lab Laboratory Tests 11/26/22 05:17: Hemoglobin 13.4, Hematocrit 39L Microbiology 11/17/22 MRSA Screen - Final, Complete MRSA not isolated Assessment/Plan Assessment/Plan Assess & Plan/Chief Complaint 1. Severe osteoarthritis left knee with significant pain now he is status post left knee replacement -patient is under the care of Dr. Regalado -apixaban 2.5 mg by mouth twice a day initiated by orthopedics -physical therapy -Patient will probably need inpatient rehabilitation as well 11/26 -apparently inpatient rehabilitation criteria was not met -Hemoglobin stable 2. Myasthenia gravis since 2019 -He is awaiting appointment at [facility]. 11-25 -patient has appointment January 14 at 3. Hypertension first diagnosed 2017 -Lisinopril 20 mg and amlodipine 5 mg have already been initiated daily. -Will follow along with you 10-3 -blood pressure he is up a little bit this morning. He has not had his blood pressure medications today however. Will continue to [id number]/ -blood pressure this morning within normal range JESENIA OAKLEY MD Nov 26, 2022 07:58
[2022-11-26] MEDS ORDERED: HYDR-34 PO (09:45)
[2022-11-26] MEDS ORDERED: APIX2.5T PO (09:45)
--- NOTE | 2022-11-26 09:48 | Discharge Summary ---
Discharge Summary Hospital Course Hospital Course Date of Admission: 11/24/22 Admission Diagnosis : Left Knee Primary Osteoarthritis Family Physician/Provider: Hans Mendez MD Date of Discharge: 11/26/22 Discharge Diagnosis: [ Left Knee Primary Osteoarthritis s/p TKA ] Hospital Course: [On 11/24/22, patient underwent left total knee arthroplasty. Tolerated the procedure well and was transferred to the regular floor. On the day of surgery, began mechanical DVT prophylaxis and started to work with therapy. On POD #1, made good progress with therapy and began chemical DVT prophylaxis. On POD #2, continued to make progress with therapy and home health therapy arrangements were made. Patient was ready for discharge home. ] Labs and Pending Lab Test: Laboratory Tests 11/26/22 05:17: Hemoglobin 13.4, Hematocrit 39L Microbiology 11/17/22 MRSA Screen - Final, Complete MRSA not isolated Home Meds Active HYDROcodone/APAP 7.5/325 TAB (Acetaminophen/Hydrocodone Bitart) 1 Ea Tablet 1 Ea PO Q4H PRN 7 Days Eliquis (Apixaban) 2.5 Mg Tablet 2.5 Mg PO BID 14 Days Reported Lisinopril 40 Mg Tablet 40 Mg PO DAILY Amlodipine Besylate 5 Mg Tablet 5 Mg PO DAILY Assessment/Pt Instructions WBAT on left leg; use walker for assist. Dry dressing daily to incision site; do not get incision wet. Home health therapy for motion/strengthening/gait training. F/U with Dr. Tejinder Regalado ~2 weeks after surgery. Discharge Instructions Discharge Diet: No Restrictions Discharge Physical Examination Vital Signs Vital Signs Date Time Temp Pulse Resp B/P (MAP) Pulse Ox O2 Delivery O2 Flow Rate FiO2 11/26/22 08:00 Room Air 11/26/22 07:10 36.9 86 17 127/83 (98) 98 11/24/22 10:20 2.00 Extremity: Other (L Knee: Incision C/D/I, +DF of ankle, no s/s of DVT) Allergies: Coded Allergies: No Allergy Information Available (Unverified , 11/17/22) Discharge Summary Date of Admission Date of Discharge TJEINDER REGALADO MD Nov 26, 2022 09:48
--- NOTE | 2022-11-26 09:49 | D/C HH Face to Face Order ---
D/C Face to Face Orders Instructions for Patient Via [facility], Patient Instructions/FollowUp: WBAT on left leg; use walker for assist. Dry dressing daily to incision site; do not get incision wet. Home health therapy for motion/strengthening/gait training. F/U with Dr. Tejinder Regalado ~2 weeks after surgery. Physician to follow Patient: Tejinder Regalado Discharge Diet for Home: No Restrictions Patient Data-Allergies,Ht & Wt Patient Allergies: Coded Allergies: No Allergy Information Available (Unverified , 11/17/22) Home Health Need/Face to Face Date of Face to Face: Nov 26, 2022 Clinical Findings: Muscle weakness, Pain with ambulation I have seen Pt rphb-gq-gwuv: Yes Discharged To: Home Diagnosis/Conditions: Left Knee Primary OA s/p TKA Patient is Homebound due to: Muscle weakness, Pain w/ambulation Homebound Status Due to the above stated illness, injury or surgical procedure (medical condition or diagnosis) and associated clinical findings, the patient is homebound because of his/her inability to leave home except with aid of a supportive device and/or person AND leaving the home requires a considerable and taxing effort or is medically contraindicated. Pt req the following assistanc: Walker Home Health Nursing Orders Home Health Services Order: Physical Therapy-Evaluate & Treat Home Health Infusion Therapy Line Start Date: Nov 24, 2022 Therapy Orders Therapy Specific Orders: Gait training, Increase strength/endurance, Restore ROM Certify Stmt I certify that this patient is under my care and that I, a nurse practitioner or a physician; a library technical assistant working with me, had a face to face encounter that - meets the physician face to face encounter requirements with this patient as dated. TEJINDER REGALADO MD Nov 26, 2022 09:49
[2022-11-26 11:06] VITALS: BP 127/79
--- NOTE | 2022-11-26 11:25 | Physical Therapy Daily Note ---
PT Daily Note-Current Subjective Patient lying supine in bed upon PT arrival, agreeable to treatment. Patient rates pain at 2/10 currently in the left knee. Pain Section J - Health Conditions 1. Rarely or not at all 2. Occasionally 3. Frequently 4. Almost constantly 8. Unable to answer Pain Effect on Sleep: 4 Pain Interference with Therapy: 4 Pain Interference w/Day-to-Day: 4 Mental Status Patient Orientation: Person, Place, Time, Situation Transfers SCALE: Activities may be completed with or without assistive devices. 6-Saphvsqukh-dickaid completes the activity by him/herself with no assistance from a helper. 5-Set-up or Clean-up Assistance-helper sets up or cleans up; patient completes activity. [place] assists only prior to or following the activity. 4-Supervision or Touching Assistance-helper provides verbal cues and/or touching/steadying and/or contact guard assistance as patient completes activity. Assistance may be provided throughout the activity or intermittently. 3-Partial/Moderate Assistance-helper does LESS THAN HALF the effort. [place] lifts, holds or supports trunk or limbs, but provides less than half the effort. 2-Substantial/Maximal Assistance-helper does MORE THAN HALF the effort. [place] lifts or holds trunk or limbs and provides more than half the effort. 4-Gortcdyie-hvpknk does ALL the effort. Patient does none of the effort to complete the activity. Or, the assistance of 2 or more helpers is required for the patient to complete the activity. If activity was not attempted, code reason: 7-Patient Refused. 9-Not Applicable-not attempted and the patient did not perform the activity before the current illness, exacerbation or injury. 10-Not Attempted due to Environmental Limitations-(lack of equipment, weather restraints, etc.). 88-Not Attempted due to Medical Conditions or Safety Concerns. Roll Left & Right (QC): 4 Sit to Lying (QC): 4 Lying to Sitting/Side of Bed(Q: 4 Sit to Stand (QC): 4 Chair/Niu-lo-Zujmm Xfer(QC): 4 Weight Bearing Right Lower Extremity: Right Full Weight Bearing Left Lower Extremity: Left Weight Bearing/Tolerated Gait Training Does the Patient Walk?: Yes Distance: 200' Walk 10 feet (QC): 4 Walk 50 ft with 2 Turns(QC): 4 Walk 150 ft (QC): 4 Gait Assistive Device: FWW Assessment Current Status: Fair Progress Patient tolerated treatment well. Performs all bed mobility and transfers with SBA. Patient ambulates 200 feet with FWW, with SBA. Patient sitting no EOB post treatment with all needs met, nursing notified, call light in reach. PT Half-Way Goals Half-Way Goals PT Blast Furnace Keeper Goals Time Frame: Nov 29, 2022 Roll Left & Right (QC): 6 Sit to Lying (QC): 6 Lying-Sitting on Side/Bed(QC): 6 Sit to Stand (QC): 6 Chair/Cud-te-Yxcsb Xfer(QC): 6 Toilet Transfer (QC): 6 Walk 10 feet (QC): 6 Walk 50ft with 2 Turns (QC): 6 Walk 150 ft (QC): 6 1 Step (curb) (QC): 4 4 Steps (QC): 4 PT Plan Treatment/Plan Treatment Plan: Continue Plan of Care Treatment Plan: Bed Mobility, Education, Functional Activity Constanza, Functional Strength, Gait, Safety, Therapeutic Exercise, Transfers Treatment Duration: Nov 29, 2022 Frequency: 11 times per week Estimated Hrs Per Day: .5 hour per day Safety Risks/Education Patient Education: Gait Training, Transfer Techniques Teaching Recipient: Patient Teaching Methods: Demonstration, Discussion Response to Teaching: Verbalize Understanding, Return Demonstration Time Time In: 940 Time Out: 950 DATE: Nov 26, 2022 Total Billed Treatment Time: 10 Total Billed Treatment Visit, PARVIN MORENO PT Nov 26, 2022 11:25
[2022-11-26 12:25] VITALS: BP 127/79
== END 2022-11-26 12:25 | disposition home health service (06) ==
LOC: SDC 06:08 → 4TH 10:50 → SDC 11-26 12:25
PROVIDERS: ATTEND Orthopaedic Surgery
DX: M17.12 Unilateral primary osteoarthritis, left knee (principal); G70.00 Myasthenia gravis without (acute) exacerbation; I10 Essential (primary) hypertension; Z87.891 Personal history of nicotine dependence; E66.9 Obesity, unspecified; Z68.37 Body mass index [BMI] 37.0-37.9, adult
CPT/HCPCS: 27447; 73560; 85014; 85018; 87081; 93005; 94664; 97110; 97116 ×2; 97162; 97166; 97535; C1713; C1776 ×3; 36415

== ENCOUNTER → 2022-12-09 | Outpatient (CLI) | payer MEDICARE ==
[~2022-12-09] MED LIST changes: +APIX2.5T PO; +HYDR-34 PO
== END ==
LOC: ORTHO 08:08
PROVIDERS: ATTEND Orthopaedic Surgery
DX: Z47.89 Encounter for other orthopedic aftercare (principal); I10 Essential (primary) hypertension; E66.9 Obesity, unspecified; Z82.49 Family history of ischemic heart disease and other diseases of the circulatory system

== ENCOUNTER → 2023-01-08 | Outpatient (CLI) | payer MEDICARE ==
--- NOTE | 2023-01-08 11:25 | Diagnostic Imaging Report ---
EXAMINATION: Left knee radiographs, 2 views. COMPARISON: November 24, 2022. HISTORY: 52-year-old male, left knee pain. FINDINGS: There is a left total constrained knee prosthesis. The hardware is intact. There is no periprosthetic lucency. There is no identified acute fracture. IMPRESSION: 1. Intact left total knee prosthesis without identified complication. Dictated by: Dictated on workstation # [id number]
== END ==
LOC: ORTHO 09:23
PROVIDERS: ATTEND Orthopaedic Surgery
DX: Z09 Encounter for follow-up examination after completed treatment for conditions other than malignant neoplasm (principal); M25.562 Pain in left knee; Z96.652 Presence of left artificial knee joint
CPT/HCPCS: 73560